=== PATIENT | male | born 1945 | race African-American/Black ===

== ENCOUNTER 2018-02-22 09:18 | Inpatient (IN) | payer MEDICARE, OTHER ==
[~2018-02-22] VITALS: Ht 177.8 cm; Wt 93.0 kg
[2018-02-22] MEDS ORDERED: FUROSEMIDE20 M1 ORAL (09:23)
[2018-02-22] MEDS ORDERED: ASPIR 8181 MG ORAL (09:23)
[2018-02-22] MEDS ORDERED: COREG3.125 MG ORAL (09:23)
[2018-02-22] MEDS ORDERED: POTASSIUM CHLO10 MEQ ORAL (09:23)
--- NOTE | 2018-02-22 09:25 | Emergency Room Report ---
History of Present Illness General Chief Complaint: General Complaint Source: Patient, EMS Present Illness HPI Patient is a 73-year-old male brought in by EMS after increased left upper extremity pain. The patient reports having intermittent episodes. The patient had prior history of end-stage renal disease and is currently being dialyzed. Patient reports having slight increased drainage from his left upper extremity. The patient had been dialyzed Friday and is normally dialyzed Friday. Patient been getting additional dialysis one day a week. Allergies: Coded Allergies: PENICILLINS (Verified Allergy, Unknown, 02/22/18) Patient History Past Medical History: see triage record Reviewed Nursing Documentation: PMH: Agreed; PSxH: Agreed Review of Systems All Other Systems: negative except mentioned in HPI Physical Exam Sp02 EP Interpretation: reviewed, normal General Appearance: normal inspection, well appearing, no apparent distress, alert, GCS 15, Chronically Ill Head: atraumatic ENT: normal ENT inspection, hearing grossly normal, normal voice Neck: normal inspection, full range of motion, supple, no bony tend Respiratory: normal inspection, lungs clear, no respiratory distress, no retraction, no wheezing Cardiovascular #1: regular rate, rhythm, no edema Gastrointestinal: normal inspection, normal bowel sounds, non tender, soft, no guarding, no hernia Genitourinary: no CVA tenderness Musculoskeletal: normal inspection, back normal, normal range of motion Neurologic: normal inspection, alert, oriented x3, responsive, speech normal Psychiatric: normal inspection, judgement/insight normal, mood/affect normal Skin: no rash, other - av graft with brisk pulse Medical Decision Making Diagnostic Impression: Primary Impression: ESRD (end stage renal disease) Additional Impressions: Pneumonitis Left arm pain ER Course Patient presented for left upper extremity pain. Differential diagnosis included but was not limited to myocardial infarction vascular insufficiency, DVT venous thrombosis, cellulitis among others. Because of complexity of patient's case laboratory testing and imaging studies were ordered.Chest x-ray read by radiology showed bilateral basilar opacities. The potassium was noted to be unremarkable The laboratory testing showed adequate hemoglobin. The patient's initial troponin was noted be negative. The Dr. Shay Mcclellan was contacted for inpatient management Labs Test 02/22/18 09:30 White Blood Count 6.5 K/UL (4.8-10.8) Red Blood Count 4.04 M/UL (4.70-6.10) Hemoglobin 11.7 G/DL (14.2-18.0) Hematocrit 38.0 % (42.0-52.0) Mean Corpuscular Volume 94 FL (80-99) Mean Corpuscular Hemoglobin 28.9 PG (27.0-31.0) Mean Corpuscular Hemoglobin Concent 30.8 G/DL (32.0-36.0) Red Cell Distribution Width 14.9 % (11.6-14.8) Platelet Count 179 K/UL (150-450) Mean Platelet Volume 7.6 FL (6.5-10.1) Neutrophils (%) (Auto) 52.0 % (45.0-75.0) Lymphocytes (%) (Auto) 20.5 % (20.0-45.0) Monocytes (%) (Auto) 11.3 % (1.0-10.0) Eosinophils (%) (Auto) 14.3 % (0.0-3.0) Basophils (%) (Auto) 1.9 % (0.0-2.0) Prothrombin Time 10.7 SEC (9.30-11.50) Prothromb Time International Ratio 1.0 (0.9-1.1) Activated Partial Thromboplast Time 26 SEC (23-33) Sodium Level 139 MMOL/L (136-145) Potassium Level 4.9 MMOL/L (3.5-5.1) Chloride Level 102 MMOL/L (98-107) Carbon Dioxide Level 26 MMOL/L (21-32) Anion Gap 11 mmol/L (5-15) Blood Urea Nitrogen 52 mg/dL (7-18) Creatinine 8.3 MG/DL (0.55-1.30) Estimat Glomerular Filtration Rate mL/min (>60) Glucose Level 72 MG/DL (74-106) Calcium Level 8.5 MG/DL (8.5-10.1) Total Bilirubin 0.3 MG/DL (0.2-1.0) Aspartate Amino Transf (AST/SGOT) 12 U/L (15-37) Alanine Aminotransferase (ALT/SGPT) 10 U/L (12-78) Alkaline Phosphatase 98 U/L (46-116) Troponin I 0.088 ng/mL (0.000-0.056) Total Protein 7.9 G/DL (6.4-8.2) Albumin 3.3 G/DL (3.4-5.0) Globulin 4.6 g/dL Albumin/Globulin Ratio 0.7 (1.0-2.7) EKG Diagnostic Results Rate: normal Rhythm: NSR ST Segments: no acute changes Status: unchanged Disposition: ADMITTED INPATIENT Condition: Serious Pb Johnson MD Feb 22, 2018 09:25
[2018-02-22] MEDS ORDERED: Acetaminophen 500mg (ES) tab ORAL ONE (09:45)
[2018-02-22 09:50] VITALS: BP 146/64
[2018-02-22 10:08] LABS: BASOPHILS % (AUTO) 1.9 % (0.0-2.0); EOSINOPHILS % (AUTO) 14.3 % (0.0-3.0); HEMOGLOBIN 11.7 G/DL (14.2-18.0); LYMPHOCYTES % (AUTO) 20.5 % (20.0-45.0); MEAN CORPUSCULAR VOLUME 94 FL (80-99); MONOCYTES % (AUTO) 11.3 % (1.0-10.0); PLATELET COUNT 179 K/UL (150-450); RED BLOOD COUNT 4.04 M/UL (4.70-6.10); RED CELL DISTRIBUTION WIDTH 14.9 % (11.6-14.8); WHITE BLOOD COUNT 6.5 K/UL (4.8-10.8)
[2018-02-22 10:16] LABS: ANION GAP 11 mmol/L (5-15); BLOOD UREA NITROGEN 52 mg/dL (7-18); CALCIUM 8.5 MG/DL (8.5-10.1); CARBON DIOXIDE 26 MMOL/L (21-32); CHLORIDE 102 MMOL/L (98-107); CREATININE 8.3 MG/DL (0.55-1.30); POTASSIUM 4.9 MMOL/L (3.5-5.1); SODIUM 139 MMOL/L (136-145)
[2018-02-22 10:20] LABS: ALANINE AMINOTRANSFERASE 10 U/L (12-78); ALBUMIN 3.3 G/DL (3.4-5.0); ALBUMIN/GLOBULIN RATIO 0.7 (1.0-2.7); ALKALINE PHOSPHATASE 98 U/L (46-116); ASPARTATE AMINO TRANSFERASE 12 U/L (15-37); BILIRUBIN,TOTAL 0.3 MG/DL (0.2-1.0)
--- NOTE | 2018-02-22 10:36 | Diagnostic Imaging Report ---
INDICATION: Shortness of breath COMPARISON: None FINDINGS: Single frontal view demonstrates a prominent heart size. Bilateral lower lung zone opacities, can represent pneumonia, correlation can be obtained with CT, followup to resolution. No pleural effusions. The visualized osseous structures are within normal limits. IMPRESSION: Prominent heart size. Bilateral lower lung zone opacities, can represent pneumonia, correlation can be obtained with CT, followup to resolution.
[2018-02-22] MEDS ORDERED: Aspirin Baby 81mg ORAL ONE (10:45)
[2018-02-22] MEDS ORDERED: ALLOPURINOL100 M1 ORAL (11:30)
[2018-02-22 12:31] VITALS: BP 151/87
[2018-02-22 12:55] VITALS: BP 149/88
--- NOTE | 2018-02-22 14:46 | History and Physical ---
History of Present Illness General Date patient seen: Feb 22, 2018 Reason for Hospitalization: General Complaint Present Illness HPI 73 yo m w/ pmhx of MMP including ESRD on HD ([facility]FS), prior LUE AV graft infection , Chronic cough, CAD, gout, PNA who presented to the ED w/ acute on chronic productive cough, sob, jacome and small amount of serous drainage form his LUE AV graft w/ arm pain. Cough is productive of thick yusuf sputum, increased in quantity from baseline (prior smoker, quit 10 yrs ago). Denies fever, chills, nausea, vom, diarrhea, cp, palp. In the ED pt was found to have infiltrates on CXR and started on Levofloxacin. LUE graft was slightly ulcerated but dry. Initial labs relatively unremarkable. Pt will be placed in observation for rule out acs and HD. Allergies: Coded Allergies: PENICILLINS (Verified Allergy, Unknown, 02/22/18) Medication History Scheduled Allopurinol* (Allopurinol*), 100 MG ORAL DAILY, (Reported) Aspirin* (Aspir 81*), 81 MG ORAL DAILY, (Reported) Carvedilol (Coreg), Unknown Dose ORAL EVERY 12 HOURS, (Reported) Furosemide* (Lasix*), MG ORAL DAILY, (Reported) Potassium Chloride* (K-Dur*), Unknown Dose ORAL DAILY, (Reported) Patient History Healthcare decision maker Resuscitation status Full Code Advanced Directive on File Past Medical/Surgical History Past Medical/Surgical History: (1) Pneumonitis (2) ESRD (end stage renal disease) (3) Left arm pain Review of Systems Constitutional: Denies: no symptoms, see HPI, chills, sweats, fever, malaise, weakness, other Respiratory: Reports: see HPI, cough, shortness of breath, JACOME, sputum; Denies : no symptoms, orthopnea, stridor, wheezing, other Cardiovascular: Denies: no symptoms, see HPI, chest pain, edema, palpitations, syncope, PND, other Gastrointestinal: Denies: no symptoms, see HPI, abdominal pain, constipation, diarrhea, nausea, vomiting, melena, hematemesis, other Genitourinary: Denies: no symptoms, see HPI, discharge, dysuria, frequency, hematuria, pain, retention, incontinence, urgency, vag bleed/dc, other Musculoskeletal: Denies: no symptoms, see HPI, back pain, gout, joint pain, joint swelling, muscle pain, muscle stiffness, other Skin: Reports: see HPI - graft drainage & ulceration Psychiatric: Denies: no symptoms, see HPI, prior hx, anxiety, depressed feelings, emotional problems, SI, HI, hallucinations, other Neurological: Denies: no symptoms, see HPI, headache, numbness, paresthesia, seizure, tingling, tremors, focal weakness, syncope, dizziness, other Endocrine: Denies: no symptoms, see HPI, excessive sweating, flushing, intolerance to temperature, increased thirst, increased urine, unexplained weight loss, other Physical Exam General Appearance: WD/WN, alert HEENT: normocephalic, atraumatic, anicteric, mucous membranes moist, PERRL, EOMI, no JVD Neck: supple, normal inspection Respiratory/Chest: chest wall non-tender, lungs clear, normal breath sounds, no respiratory distress Cardiovascular/Chest: normal rate, regular rhythm, regularly irregular, no gallop/murmur Abdomen: normal bowel sounds, non tender, soft, no organomegaly, no mass Extremities: no edema, no cyanosis 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, oriented x 3, normal mood/affect Last 24 Hour Vital Signs Date Time Temp Pulse Resp B/P (MAP) Pulse Ox O2 Delivery O2 Flow Rate FiO2 02/22/18 12:55 Room Air 02/22/18 12:48 98.6 67 18 151/87 100 Room Air 4.0 98.6 02/22/18 12:31 98.6 67 18 151/87 100 Room Air 98.6 02/22/18 10:14 98.6 02/22/18 09:50 98.6 68 18 146/64 96 Room Air 98.6 02/22/18 09:44 98.3 02/22/18 09:19 98.3 88 18 162/90 96 Nasal Cannula 4.0 98.2 Laboratory Tests Test 02/22/18 09:30 White Blood Count 6.5 K/UL (4.8-10.8) Red Blood Count 4.04 M/UL (4.70-6.10) L Hemoglobin 11.7 G/DL (14.2-18.0) L Hematocrit 38.0 % (42.0-52.0) L Mean Corpuscular Volume 94 FL (80-99) Mean Corpuscular Hemoglobin 28.9 PG (27.0-31.0) Mean Corpuscular Hemoglobin Concent 30.8 G/DL (32.0-36.0) L Red Cell Distribution Width 14.9 % (11.6-14.8) H Platelet Count 179 K/UL (150-450) Mean Platelet Volume 7.6 FL (6.5-10.1) Neutrophils (%) (Auto) 52.0 % (45.0-75.0) Lymphocytes (%) (Auto) 20.5 % (20.0-45.0) Monocytes (%) (Auto) 11.3 % (1.0-10.0) H Eosinophils (%) (Auto) 14.3 % (0.0-3.0) H Basophils (%) (Auto) 1.9 % (0.0-2.0) Prothrombin Time 10.7 SEC (9.30-11.50) Prothromb Time International Ratio 1.0 (0.9-1.1) Activated Partial Thromboplast Time 26 SEC (23-33) Sodium Level 139 MMOL/L (136-145) Potassium Level 4.9 MMOL/L (3.5-5.1) Chloride Level 102 MMOL/L (98-107) Carbon Dioxide Level 26 MMOL/L (21-32) Anion Gap 11 mmol/L (5-15) Blood Urea Nitrogen 52 mg/dL (7-18) H Creatinine 8.3 MG/DL (0.55-1.30) H Estimat Glomerular Filtration Rate mL/min (>60) Glucose Level 72 MG/DL (74-106) L Calcium Level 8.5 MG/DL (8.5-10.1) Total Bilirubin 0.3 MG/DL (0.2-1.0) Aspartate Amino Transf (AST/SGOT) 12 U/L (15-37) L Alanine Aminotransferase (ALT/SGPT) 10 U/L (12-78) L Alkaline Phosphatase 98 U/L (46-116) Troponin I 0.088 ng/mL (0.000-0.056) Total Protein 7.9 G/DL (6.4-8.2) Albumin 3.3 G/DL (3.4-5.0) L Globulin 4.6 g/dL Albumin/Globulin Ratio 0.7 (1.0-2.7) L Height (Feet): 5 Height (Inches): 10.00 Weight (Pounds): 200 Medications Current Medications Medications (Trade) Dose Ordered Sig/Gallito Route PRN Reason Start Time Stop Time Status Last Admin Dose Admin Allopurinol (Zyloprim) 100 mg DAILY ORAL 02/23/18 09:00 03/25/18 08:59 Aspirin (Ecotrin) 81 mg DAILY ORAL 02/23/18 09:00 03/25/18 08:59 Carvedilol (Coreg) 3.125 mg EVERY 12 HOURS ORAL 02/22/18 21:00 03/24/18 20:59 Furosemide (Lasix) 20 mg DAILY ORAL 02/23/18 09:00 03/25/18 08:59 Heparin Sodium (Porcine) (Heparin 5000 units/ml) 5,000 units EVERY 12 HOURS SUBQ 02/22/18 21:00 03/24/18 20:59 Levofloxacin 50 ml @ 50 mls/hr Q48H IVPB 02/24/18 14:00 03/03/18 13:59 Levofloxacin 100 ml @ 100 mls/hr ONCE ONCE IVPB 02/22/18 14:00 02/22/18 14:59 Potassium Chloride (K-Dur) 20 meq DAILY ORAL 02/23/18 09:00 03/25/18 08:59 Assessment/Plan Problem List: (1) ESRD (end stage renal disease) ICD Codes: N18.6 - End stage renal disease SNOMED: 30951481 (2) Pneumonitis ICD Codes: J18.9 - Pneumonia, unspecified organism SNOMED: 649579572 (3) Left arm pain ICD Codes: M79.602 - Pain in left arm SNOMED: 882441310 Assessment/Plan #Left arm pain (? anginal equivalent per ED) - r/o acs #ESRD on HD #LUE fistula drainage - Hx prior infection. Not clinically infected on inspection #Pneumonia - admit to in pt - continue levofloxacin for coverage of PNA - pulm consult, dr Fields - nephrology consult, dr Alba - monitor fistula for evidence of infection, defer abx for now - trend tn/ekg - asa, beta guillermo - cns - cardiac diet - supportive care - dvt ppx: scds/hsq expect pt will require 1-2 days of in pt care expect pt to be discharged to home vs snf when medically stable I spent 70 min on this case and 48 min on counseling and or care coordination time of this note dose not reflect time of clinical encounter Abiel Mcclellan MD Feb 22, 2018 14:46
[2018-02-22 16:00] VITALS: BP 137/97
[2018-02-22 20:00] VITALS: BP 142/84
[2018-02-22] MEDS: Heparin 5000 units/ml inj SUBQ SCH (20:59)
[2018-02-22] MEDS ORDERED: Vancomycin 1 GM in D5W 275 ML IVPB SCH (21:00)
[2018-02-23] VITALS (7 sets, daily range): BP systolic 125–166; BP diastolic 70–100
[2018-02-23 05:57] LABS: BASOPHILS % (AUTO) 2.3 % (0.0-2.0); EOSINOPHILS % (AUTO) 18.1 % (0.0-3.0); HEMATOCRIT 34.6 % (42.0-52.0); HEMOGLOBIN 11.2 G/DL (14.2-18.0); LYMPHOCYTES % (AUTO) 21.8 % (20.0-45.0); MEAN CORPUSCULAR VOLUME 93 FL (80-99); MONOCYTES % (AUTO) 11.9 % (1.0-10.0); NEUTROPHILS % (AUTO) 45.8 % (45.0-75.0); PLATELET COUNT 157 K/UL (150-450); RED BLOOD COUNT 3.72 M/UL (4.70-6.10); RED CELL DISTRIBUTION WIDTH 15.1 % (11.6-14.8); WHITE BLOOD COUNT 5.4 K/UL (4.8-10.8)
[2018-02-23 06:08] LABS: ANION GAP 11 mmol/L (5-15); BLOOD UREA NITROGEN 69 mg/dL (7-18); CALCIUM 8.2 MG/DL (8.5-10.1); CARBON DIOXIDE 25 MMOL/L (21-32); CHLORIDE 103 MMOL/L (98-107); CREATININE 9.8 MG/DL (0.55-1.30); POTASSIUM 5.2 MMOL/L (3.5-5.1); SODIUM 139 MMOL/L (136-145)
[2018-02-23] MEDS: Aspirin EC 81mg tab ORAL SCH (09:51)
[2018-02-23] MEDS: Allopurinol 100mg Tab ORAL SCH (09:51)
[2018-02-23] MEDS: Heparin 5000 units/ml inj SUBQ SCH ×2 (09:54→20:40)
--- NOTE | 2018-02-23 10:30 | General Progress Note ---
Assessment/Plan Problem List: (1) PNEUMONIA, UNSPECIFIED ORGANISM ICD Codes: J18.9 - PNEUMONIA, UNSPECIFIED ORGANISM (2) AV graft malfunction ICD Codes: T82.590A - Other mechanical complication of surgically created arteriovenous fistula, initial encounter SNOMED: 218634483 (3) ESRD (end stage renal disease) on dialysis ICD Codes: N18.6 - End stage renal disease; Z99.2 - Dependence on renal dialysis SNOMED: 748831519 (4) HYP CHR KIDNEY DISEASE W STAGE 5 CHR KIDNEY DISEASE OR ESRD ICD Codes: I12.0 - HYP CHR KIDNEY DISEASE W STAGE 5 CHR KIDNEY DISEASE OR ESRD Assessment/Plan Pneumonia, unspecified organism c/w levofloxacin pulm consult appreciated encourage pulmonary toilet AV graft malfunction Plan will be to attempt HD today hopefully will not have issues but if needed will try heparin ESRD usually //Fri will have HD today as pt is slightly overloaded Nephro on consult Left arm pain ICD Codes: M79.602 - Pain in left arm Currently stable will c/w HD Subjective Constitutional: Reports: malaise, weakness Cardiovascular: Denies: edema, irregular heart rate, lightheadedness Respiratory: Reports: cough, shortness of breath, sputum Gastrointestinal/Abdominal: Denies: no symptoms, abdomen distended, abdominal pain, black stools, tarry stools, blood in stool, constipated, diarrhea, difficulty swallowing, nausea, poor appetite, poor fluid intake, rectal bleeding , vomiting, other Neurologic/Psychiatric: Denies: no symptoms, anxiety, depressed, emotional problems, headache, numbness, paresthesia, pre-existing deficit, seizure, tingling, tremors, weakness, other Allergies: Coded Allergies: PENICILLINS (Verified Allergy, Unknown, 02/22/18) Subjective Pt seen and examined. He states his breathing is slightly improved. No new complaints at this time. Objective Last 24 Hour Vital Signs Date Time Temp Pulse Resp B/P (MAP) Pulse Ox O2 Delivery O2 Flow Rate FiO2 02/23/18 09:55 72 159/91 02/23/18 09:00 Room Air 02/23/18 08:00 97.9 72 20 159/91 (113) 94 97.9 02/23/18 04:00 81 02/23/18 04:00 98.0 83 20 149/92 (111) 97 98.0 02/23/18 00:00 97.0 72 20 157/90 (112) 98 97.0 02/23/18 00:00 87 02/22/18 21:00 Room Air 02/22/18 20:58 75 154/89 02/22/18 20:00 97.2 70 20 142/84 (103) 97 97.2 02/22/18 20:00 75 02/22/18 16:00 97.8 76 20 137/97 (110) 96 97.8 02/22/18 15:51 73 02/22/18 12:55 97.5 77 20 149/88 (108) 95 97.5 02/22/18 12:55 Room Air 02/22/18 12:55 75 02/22/18 12:48 98.6 67 18 151/87 100 Room Air 4.0 98.6 02/22/18 12:31 98.6 67 18 151/87 100 Room Air 98.6 02/22/18 10:14 98.6 Intake and Output 02/22/18 02/23/18 19:00 07:00 Intake Total 500 ml 300 ml Balance 500 ml 300 ml Intake Oral 400 ml 300 ml IV Total 100 ml Laboratory Tests 02/22/18 17:40: Troponin I 0.085H 02/23/18 00:30: Troponin I 0.069H 02/23/18 05:40: Troponin I 0.082H, White Blood Count 5.4, Red Blood Count 3.72L, Hemoglobin 11.2L, Hematocrit 34.6L, Mean Corpuscular Volume 93, Mean Corpuscular Hemoglobin 30.1, Mean Corpuscular Hemoglobin Concent 32.4, Red Cell Distribution Width 15.1H, Platelet Count 157, Mean Platelet Volume 6.7, Neutrophils (%) (Auto) 45.8, Lymphocytes (%) (Auto) 21.8, Monocytes (%) (Auto) 11.9H, Eosinophils (%) (Auto) 18.1H, Basophils (%) (Auto) 2.3H, Sodium Level 139 , Potassium Level 5.2H, Chloride Level 103, Carbon Dioxide Level 25, Anion Gap 11, Blood Urea Nitrogen 69H, Creatinine 9.8H, Estimat Glomerular Filtration Rate , Glucose Level 87, Calcium Level 8.2L Height (Feet): 5 Height (Inches): 10.00 Weight (Pounds): 207 General Appearance: no apparent distress, alert, overweight EENT: PERRL/EOMI, normal ENT inspection, pharynx normal Neck: non-tender, normal inspection Cardiovascular: normal rate, regular rhythm, no JVD Respiratory/Chest: no accessory muscle use, decreased breath sounds, crackles/ rales Abdomen: normal bowel sounds, non tender, soft Extremities: normal range of motion, non-tender, normal inspection, other - good thrill in LUE fistula Edema: no edema noted Arm (L), no edema noted Arm (R), no edema noted Leg (L), no edema noted Leg (R) 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 Feb 23, 2018 10:30
--- NOTE | 2018-02-23 11:27 | Consultation ---
History of Present Illness General Date patient seen: Feb 22, 2018 Chief Complaint: General Complaint Present Illness HPI 73-year-old male brought in by EMS after increased left upper extremity pain. the pt has been somewhat confused and pw waxing and waning of consciousness. the pt has episodes of agitation the pt oriented to self and place Allergies: Coded Allergies: PENICILLINS (Verified Allergy, Unknown, 02/22/18) Medication History Scheduled Allopurinol* (Allopurinol*), 100 MG ORAL DAILY, (Reported) Aspirin* (Aspir 81*), 81 MG ORAL DAILY, (Reported) Carvedilol (Coreg), Unknown Dose ORAL EVERY 12 HOURS, (Reported) Furosemide* (Lasix*), MG ORAL DAILY, (Reported) Potassium Chloride* (K-Dur*), Unknown Dose ORAL DAILY, (Reported) Patient History Limited by: medical condition History Provided By: Patient, Medical Record Healthcare decision maker Resuscitation status Full Code Advanced Directive on File Past Medical/Surgical History Past Medical/Surgical History: (1) ESRD (end stage renal disease) (2) Pneumonitis (3) Left arm pain (4) ESRD (end stage renal disease) on dialysis (5) AV graft malfunction (6) HYP CHR KIDNEY DISEASE W STAGE 5 CHR KIDNEY DISEASE OR ESRD (7) PNEUMONIA, UNSPECIFIED ORGANISM Review of Systems Psychiatric: Reports: prior hx, anxiety, emotional problems, hallucinations Physical Exam General Appearance: no apparent distress, alert, confused, agitated Last 24 Hour Vital Signs Date Time Temp Pulse Resp B/P (MAP) Pulse Ox O2 Delivery O2 Flow Rate FiO2 02/23/18 09:55 72 159/91 02/23/18 09:00 Room Air 02/23/18 08:00 97.9 72 20 159/91 (113) 94 97.9 02/23/18 07:42 81 02/23/18 04:00 81 02/23/18 04:00 98.0 83 20 149/92 (111) 97 98.0 02/23/18 00:00 97.0 72 20 157/90 (112) 98 97.0 02/23/18 00:00 87 02/22/18 21:00 Room Air 02/22/18 20:58 75 154/89 02/22/18 20:00 97.2 70 20 142/84 (103) 97 97.2 02/22/18 20:00 75 02/22/18 16:00 97.8 76 20 137/97 (110) 96 97.8 02/22/18 15:51 73 02/22/18 12:55 97.5 77 20 149/88 (108) 95 97.5 02/22/18 12:55 Room Air 02/22/18 12:55 75 02/22/18 12:48 98.6 67 18 151/87 100 Room Air 4.0 98.6 02/22/18 12:31 98.6 67 18 151/87 100 Room Air 98.6 Intake and Output 02/22/18 02/23/18 19:00 07:00 Intake Total 500 ml 300 ml Balance 500 ml 300 ml Intake Oral 400 ml 300 ml IV Total 100 ml Laboratory Tests Test 02/22/18 17:40 02/23/18 00:30 02/23/18 05:40 Troponin I 0.085 ng/mL (0.000-0.056) 0.069 ng/mL (0.000-0.056) 0.082 ng/mL (0.000-0.056) White Blood Count 5.4 K/UL (4.8-10.8) Red Blood Count 3.72 M/UL (4.70-6.10) L Hemoglobin 11.2 G/DL (14.2-18.0) L Hematocrit 34.6 % (42.0-52.0) L Mean Corpuscular Volume 93 FL (80-99) Mean Corpuscular Hemoglobin 30.1 PG (27.0-31.0) Mean Corpuscular Hemoglobin Concent 32.4 G/DL (32.0-36.0) Red Cell Distribution Width 15.1 % (11.6-14.8) H Platelet Count 157 K/UL (150-450) Mean Platelet Volume 6.7 FL (6.5-10.1) Neutrophils (%) (Auto) 45.8 % (45.0-75.0) Lymphocytes (%) (Auto) 21.8 % (20.0-45.0) Monocytes (%) (Auto) 11.9 % (1.0-10.0) H Eosinophils (%) (Auto) 18.1 % (0.0-3.0) H Basophils (%) (Auto) 2.3 % (0.0-2.0) H Sodium Level 139 MMOL/L (136-145) Potassium Level 5.2 MMOL/L (3.5-5.1) H Chloride Level 103 MMOL/L (98-107) Carbon Dioxide Level 25 MMOL/L (21-32) Anion Gap 11 mmol/L (5-15) Blood Urea Nitrogen 69 mg/dL (7-18) H Creatinine 9.8 MG/DL (0.55-1.30) H Estimat Glomerular Filtration Rate mL/min (>60) Glucose Level 87 MG/DL (74-106) Calcium Level 8.2 MG/DL (8.5-10.1) L Microbiology Date/Time Source Procedure Growth Status 02/22/18 12:33 Rectum - Preliminary Resulted Height (Feet): 5 Height (Inches): 10.00 Weight (Pounds): 207 Medications Current Medications Medications (Trade) Dose Ordered Sig/Gallito Route PRN Reason Start Time Stop Time Status Last Admin Dose Admin Allopurinol (Zyloprim) 100 mg DAILY ORAL 02/23/18 09:00 03/25/18 08:59 02/23/18 09:51 Aspirin (Ecotrin) 81 mg DAILY ORAL 02/23/18 09:00 03/25/18 08:59 02/23/18 09:51 Carvedilol (Coreg) 3.125 mg EVERY 12 HOURS ORAL 02/22/18 21:00 03/24/18 20:59 02/23/18 09:55 Heparin Sodium (Porcine) (Heparin 5000 units/ml) 5,000 units EVERY 12 HOURS SUBQ 02/22/18 21:00 03/24/18 20:59 02/23/18 09:54 Levofloxacin 50 ml @ 50 mls/hr Q48H IVPB 02/24/18 14:00 03/03/18 13:59 Assessment/Plan Problem List: (1) Encephalopathy due to metabolic factor or toxin SNOMED: 955275759 Status: unchanged Assessment/Plan risperdal 1mg q6hr prn for agiation avoid hypnotic and anticholinergics if possible provided ro/Jc Wang MD Feb 23, 2018 11:27
--- NOTE | 2018-02-23 11:35 | Consultation ---
Consult Note Consult Note asked to eval for dialysis management Patient is a 73-year-old male brought in by EMS after increased left upper extremity pain. The patient reports having intermittent episodes. The patient had prior history of end-stage renal disease and is currently being dialyzed. Patient reports having slight increased drainage from his left upper extremity. The patient had been dialyzed Friday and is normally dialyzed Friday. Patient been getting additional dialysis one day a week. 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 Not clinically infected on inspection Check labs Keep BP in check DC Lasix and KCL Dialysis today 2 D Perry Lopez MD Feb 23, 2018 11:35
--- NOTE | 2018-02-23 11:45 | Consultation ---
History of Present Illness General Date patient seen: Feb 23, 2018 Time patient seen: 11:32 Chief Complaint: General Complaint Present Illness HPI 73 year old male presents with L arm pain with increased drainage, pain 4/10 reinaldo , on and off. Also experienced SOB. Hx of ESRD with Dialysis on . Patient has chronic cough, hx of CAD, Gout, Pneumonia. LUE graft with drainage. SOB with exertion. No fever, chills, N/V, palpitations. CXR with infiltrates, Bilateral lower lung zone opacities, can represent pneumonia,. Started on ABX. Troponin mildly elevated but flat Allergies: Coded Allergies: PENICILLINS (Verified Allergy, Unknown, 02/22/18) Medication History Scheduled Allopurinol* (Allopurinol*), 100 MG ORAL DAILY, (Reported) Aspirin* (Aspir 81*), 81 MG ORAL DAILY, (Reported) Carvedilol (Coreg), Unknown Dose ORAL EVERY 12 HOURS, (Reported) Furosemide* (Lasix*), MG ORAL DAILY, (Reported) Potassium Chloride* (K-Dur*), Unknown Dose ORAL DAILY, (Reported) Patient History Healthcare decision maker Resuscitation status Full Code Advanced Directive on File Review of Systems Constitutional: Reports: no symptoms Eye: Reports: no symptoms ENT: Reports: no symptoms Respiratory: Reports: cough, shortness of breath Cardiovascular: Reports: no symptoms Gastrointestinal: Reports: no symptoms Genitourinary: Reports: no symptoms Musculoskeletal: Reports: no symptoms Skin: Reports: lesions Psychiatric: Reports: no symptoms Neurological: Reports: no symptoms Endocrine: Reports: no symptoms Hematologic/Lymphatic: Reports: no symptoms Physical Exam General Appearance: no apparent distress Lines, tubes and drains: peripheral, dialysis access HEENT: normocephalic, atraumatic, anicteric, mucous membranes moist, PERRL Neck: non-tender, normal alignment, supple, normal inspection Respiratory/Chest: chest wall non-tender, no respiratory distress, no accessory muscle use, crackles/rales Cardiovascular/Chest: normal peripheral pulses, normal rate, regular rhythm Abdomen: normal bowel sounds, non tender, soft Extremities: normal range of motion, non-tender Skin Exam: normal pigmentation, warm/dry 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, no motor/sensory deficits Last 24 Hour Vital Signs Date Time Temp Pulse Resp B/P (MAP) Pulse Ox O2 Delivery O2 Flow Rate FiO2 10/15/18 09:55 72 159/91 02/23/18 09:00 Room Air 02/23/18 08:00 97.9 72 20 159/91 (113) 94 97.9 02/23/18 07:42 81 02/23/18 04:00 81 02/23/18 04:00 98.0 83 20 149/92 (111) 97 98.0 02/23/18 00:00 97.0 72 20 157/90 (112) 98 97.0 02/23/18 00:00 87 02/22/18 21:00 Room Air 02/22/18 20:58 75 154/89 02/22/18 20:00 97.2 70 20 142/84 (103) 97 97.2 02/22/18 20:00 75 02/22/18 16:00 97.8 76 20 137/97 (110) 96 97.8 02/22/18 15:51 73 02/22/18 12:55 97.5 77 20 149/88 (108) 95 97.5 02/22/18 12:55 Room Air 02/22/18 12:55 75 02/22/18 12:48 98.6 67 18 151/87 100 Room Air 4.0 98.6 02/22/18 12:31 98.6 67 18 151/87 100 Room Air 98.6 Intake and Output 02/22/18 02/23/18 19:00 07:00 Intake Total 500 ml 300 ml Balance 500 ml 300 ml Intake Oral 400 ml 300 ml IV Total 100 ml Laboratory Tests Test 02/22/18 17:40 02/23/18 00:30 02/23/18 05:40 Troponin I 0.085 ng/mL (0.000-0.056) 0.069 ng/mL (0.000-0.056) 0.082 ng/mL (0.000-0.056) White Blood Count 5.4 K/UL (4.8-10.8) Red Blood Count 3.72 M/UL (4.70-6.10) L Hemoglobin 11.2 G/DL (14.2-18.0) L Hematocrit 34.6 % (42.0-52.0) L Mean Corpuscular Volume 93 FL (80-99) Mean Corpuscular Hemoglobin 30.1 PG (27.0-31.0) Mean Corpuscular Hemoglobin Concent 32.4 G/DL (32.0-36.0) Red Cell Distribution Width 15.1 % (11.6-14.8) H Platelet Count 157 K/UL (150-450) Mean Platelet Volume 6.7 FL (6.5-10.1) Neutrophils (%) (Auto) 45.8 % (45.0-75.0) Lymphocytes (%) (Auto) 21.8 % (20.0-45.0) Monocytes (%) (Auto) 11.9 % (1.0-10.0) H Eosinophils (%) (Auto) 18.1 % (0.0-3.0) H Basophils (%) (Auto) 2.3 % (0.0-2.0) H Sodium Level 139 MMOL/L (136-145) Potassium Level 5.2 MMOL/L (3.5-5.1) H Chloride Level 103 MMOL/L (98-107) Carbon Dioxide Level 25 MMOL/L (21-32) Anion Gap 11 mmol/L (5-15) Blood Urea Nitrogen 69 mg/dL (7-18) H Creatinine 9.8 MG/DL (0.55-1.30) H Estimat Glomerular Filtration Rate mL/min (>60) Glucose Level 87 MG/DL (74-106) Calcium Level 8.2 MG/DL (8.5-10.1) L Microbiology Date/Time Source Procedure Growth Status 02/22/18 12:33 Rectum - Preliminary Resulted Height (Feet): 5 Height (Inches): 10.00 Weight (Pounds): 207 Medications Current Medications Medications (Trade) Dose Ordered Sig/Gallito Route PRN Reason Start Time Stop Time Status Last Admin Dose Admin Allopurinol (Zyloprim) 100 mg DAILY ORAL 02/23/18 09:00 03/25/18 08:59 02/23/18 09:51 Aspirin (Ecotrin) 81 mg DAILY ORAL 02/23/18 09:00 03/25/18 08:59 02/23/18 09:51 Carvedilol (Coreg) 3.125 mg EVERY 12 HOURS ORAL 02/22/18 21:00 03/24/18 20:59 02/23/18 09:55 Heparin Sodium (Porcine) (Heparin 5000 units/ml) 5,000 units EVERY 12 HOURS SUBQ 02/22/18 21:00 03/24/18 20:59 02/23/18 09:54 Levofloxacin 50 ml @ 50 mls/hr Q48H IVPB 02/24/18 14:00 03/03/18 13:59 Assessment/Plan Status: stable Assessment/Plan Assessment/Plan Problem List: (1) ESRD (end stage renal disease) (2) Pneumonitis (3) Left arm pain (4) Chest pain (5) Coronary artery disease (6) AV graft malfunction Serial EKG/Troponin No indication for cath Outpatient stress test Abx for PNA Maintain HD Continue aspirin Continue beta guillermo Add statin Nikolay Michelle MD Feb 23, 2018 11:45
--- NOTE | 2018-02-23 12:45 | Consultation ---
DATE OF CONSULTATION: 02/23/2018 PULMONARY CONSULTATION CONSULTING PHYSICIAN: Fran Fields M.D. HISTORY OF PRESENT ILLNESS: This is a 73-year-old male with a previous history of ESRD, on dialysis, previous left AV graft infection, CAD, and gout, who came to the hospital with cough and shortness of breath. He also had drainage of the fistula site. He reports the cough was productive of thick yellow phlegm. The patient has been a smoker in the past. At this time, he denies any fever, chills, or nausea. X-ray chest confirmed right lung infiltrate. He was started on antibiotics. PAST MEDICAL HISTORY: Notable as above for CAD, gout, previous pneumonia, ESRD, on dialysis, and hypertension. LIST OF MEDICATIONS: Include KCl, Lasix, Coreg, aspirin, and allopurinol. ALLERGIES: Penicillin. SOCIAL HISTORY: He has been a smoker in the past, but quit 10 years ago. Denies alcohol use. REVIEW OF SYSTEMS: Denies any headaches, hematemesis, melena, or hematochezia. PHYSICAL EXAMINATION: VITAL SIGNS: Blood pressure is 150/90, heart rate , afebrile, and O2 saturation 98% on room air. GENERAL: Reveals an elderly male. HEENT: Unremarkable. LUNGS: Clear breath sounds bilaterally with few basilar crackles. ABDOMEN: Soft. EXTREMITIES: There is no edema. NEUROLOGIC: Nonfocal. LABORATORY AND DIAGNOSTIC DATA: Lab testing shows normal CBC and BMP with the exception of creatinine being . Potassium 5.2. Troponin is borderline high. IMPRESSION: 1. Bilateral basilar pneumonia, community acquired. 2. End-stage renal disease, on dialysis. 3. Hypertension. DISCUSSION: I agree with present antibiotics and care. Oxygen and pulmonary hygiene. Cardiac evaluation as per primary physician. Agree with Levaquin. We will follow. Fran Fields M.D. DR: ALISSA JOB#: [id number] CC:
[2018-02-23 13:40] LABS: ALANINE AMINOTRANSFERASE 10 U/L (12-78); ALKALINE PHOSPHATASE 93 U/L (46-116); ASPARTATE AMINO TRANSFERASE 11 U/L (15-37); BILIRUBIN,DIRECT < 0.1 MG/DL (0.0-0.3); BILIRUBIN,TOTAL 0.3 MG/DL (0.2-1.0); FERRITIN 264 NG/ML (8-388); PHOSPHORUS 6.6 MG/DL (2.5-4.9)
[2018-02-23 14:08] LABS: % IRON SATURATION 23 % (15-50); IRON 49 ug/dL (50-175); TOTAL IRON BINDING CAPACITY 217 ug/dL (250-450)
[2018-02-23] MEDS: Carvedilol 6.25mg Tab ORAL SCH (20:39)
--- NOTE | 2018-02-23 21:50 | General Progress Note ---
Assessment/Plan Problem List: (1) Encephalopathy due to metabolic factor or toxin SNOMED: 373705303 Assessment/Plan risperdal 1mg q6hr prn for agiation avoid hypnotic and anticholinergics if possible provided ro/st Subjective Date patient seen: Feb 23, 2018 Neurologic/Psychiatric: Reports: anxiety, emotional problems Allergies: Coded Allergies: PENICILLINS (Verified Allergy, Unknown, 02/22/18) Objective Last 24 Hour Vital Signs Date Time Temp Pulse Resp B/P (MAP) Pulse Ox O2 Delivery O2 Flow Rate FiO2 02/23/18 20:39 78 131/70 02/23/18 16:00 97.2 64 20 157/95 (115) 96 97.2 02/23/18 15:11 92 02/23/18 14:49 Room Air 02/23/18 13:00 125/89 (101) 02/23/18 12:52 Room Air 02/23/18 12:00 97.3 73 22 166/100 (122) 98 97.3 02/23/18 11:57 80 02/23/18 09:55 72 159/91 02/23/18 09:00 Room Air 02/23/18 08:00 97.9 72 20 159/91 (113) 94 97.9 02/23/18 07:42 81 02/23/18 04:00 81 02/23/18 04:00 98.0 83 20 149/92 (111) 97 98.0 02/23/18 00:00 97.0 72 20 157/90 (112) 98 97.0 02/23/18 00:00 87 Intake and Output 02/22/18 02/23/18 19:00 07:00 Intake Total 500 ml 300 ml Balance 500 ml 300 ml Intake Oral 400 ml 300 ml IV Total 100 ml Laboratory Tests 02/23/18 00:30: Troponin I 0.069H 02/23/18 05:40: Troponin I 0.082H, White Blood Count 5.4, Red Blood Count 3.72L, Hemoglobin 11.2L, Hematocrit 34.6L, Mean Corpuscular Volume 93, Mean Corpuscular Hemoglobin 30.1, Mean Corpuscular Hemoglobin Concent 32.4, Red Cell Distribution Width 15.1H, Platelet Count 157, Mean Platelet Volume 6.7, Neutrophils (%) (Auto) 45.8, Lymphocytes (%) (Auto) 21.8, Monocytes (%) (Auto) 11.9H, Eosinophils (%) (Auto) 18.1H, Basophils (%) (Auto) 2.3H, Sodium Level 139 , Potassium Level 5.2H, Chloride Level 103, Carbon Dioxide Level 25, Anion Gap 11, Blood Urea Nitrogen 69H, Creatinine 9.8H, Estimat Glomerular Filtration Rate , Glucose Level 87, Calcium Level 8.2L 02/23/18 12:00: Troponin I 0.094H, Uric Acid 6.3, Phosphorus Level 6.6H, Magnesium Level 2.3, Iron Level 49L, Total Iron Binding Capacity 217L, Percent Iron Saturation 23, Unsaturated Iron Binding 168, Ferritin 264, Total Bilirubin 0.3, Direct Bilirubin < 0.1, Aspartate Amino Transf (AST/SGOT) 11L, Alanine Aminotransferase (ALT/SGPT) 10L, Alkaline Phosphatase 93, Total Protein 7.4, Albumin 3.0L, Vitamin B12 Level 1097H, Folate 11.4 02/23/18 18:08: Troponin I 0.091H Height (Feet): 5 Height (Inches): 10.00 Weight (Pounds): 207 General Appearance: no apparent distress, alert, confused Jc Cardona MD Feb 23, 2018 21:50
[2018-02-24] VITALS: BP 158/86
[2018-02-24 04:00] VITALS: BP 132/80
--- NOTE | 2018-02-24 06:47 | Consultation ---
Consult Note Consult Note Hematology Consult RFC: Anemia eval Date patient seen: Feb 24, 2018 Reason for Hospitalization: General Complaint REQ MD: Ridge and Eleuterio ID 73 yo m w/ pmhx of MMP including ESRD on HD ([facility]FS), prior LUE AV graft infection , Chronic cough, CAD, gout, PNA who presented to the ED w/ acute on chronic productive cough, sob, pressley and small amount of serous drainage form his LUE AV graft w/ arm pain. Cough is productive of thick yusuf sputum, increased in quantity from baseline (prior smoker, quit 10 yrs ago). Denies fever, chills, nausea, vom, diarrhea, cp, palp. In the ED pt was found to have infiltrates on CXR and started on Levofloxacin. LUE graft was slightly ulcerated but dry. Initial labs relatively unremarkable. Pt will be placed in observation for rule out acs and HD. Seen by other services, and heme was consulted for anemia. Allergies: Pencillins (Verified Allergy, Unknown, 02/22/18) Medication History Scheduled Allopurinol* (Allopurinol*), 100 MG ORAL DAILY, (Reported) Aspirin* (Aspir 81*), 81 MG ORAL DAILY, (Reported) Carvedilol (Coreg), Unknown Dose ORAL EVERY 12 HOURS, (Reported) Furosemide* (Lasix*), MG ORAL DAILY, (Reported) Potassium Chloride* (K-Dur*), Unknown Dose ORAL DAILY, (Reported) Patient History Healthcare decision maker Resuscitation status Full Code Advanced Directive on File Past Medical/Surgical History Past Medical/Surgical History: (1) Pneumonitis (2) ESRD (end stage renal disease) (3) Left arm pain Review of Systems Constitutional: Denies: no symptoms, see HPI, chills, sweats Respiratory: Reports: see HPI, cough, shortness of breath, PRESSLEY, sputum; Denies : no symptoms Cardiovascular: Denies: no symptoms, see HPI, chest pain, edema Gastrointestinal: Denies: no symptoms, see HPI, abdominal pain, constipation Genitourinary: Denies: no symptoms, see HPI, discharge, dysuria, frequency Musculoskeletal: Denies: no symptoms, see HPI, back pain Skin: Reports: see HPI - graft drainage & ulceration Psychiatric: Denies: no symptoms, see HPI, prior hx, anxiety Neurological: Denies: no symptoms, see HPI, headache, numbness, paresthesia Endocrine: Denies: no symptoms, see HPI, excessive sweating, flushing Physical Exam Last 24 Hour Vital Signs Date Time Temp Pulse Resp B/P (MAP) Pulse Ox O2 Delivery O2 Flow Rate FiO2 02/24/18 04:00 97.0 75 20 132/80 (97) 95 97.0 02/24/18 04:00 69 02/24/18 00:00 82 02/24/18 00:00 97.0 80 21 158/86 (110) 96 97.0 02/23/18 21:00 Room Air 02/23/18 20:39 78 131/70 02/23/18 20:00 97.0 78 21 131/70 (90) 95 97.0 02/23/18 20:00 75 02/23/18 16:00 97.2 64 20 157/95 (115) 96 97.2 02/23/18 15:11 92 02/23/18 14:49 Room Air 02/23/18 13:00 125/89 (101) 02/23/18 12:52 Room Air 02/23/18 12:00 97.3 73 22 166/100 (122) 98 97.3 02/23/18 11:57 80 02/23/18 09:55 72 159/91 02/23/18 09:00 Room Air 02/23/18 08:00 97.9 72 20 159/91 (113) 94 97.9 02/23/18 07:42 81 General Appearance: WD/WN, alert HEENT: normocephalic, atraumatic, anicteric Neck: supple, normal inspection Respiratory/Chest: chest wall non-tender, lungs clear Cardiovascular/Chest: normal rate, irregular Abdomen: normal bowel sounds, nt, nd Extremities: no edema, no cyanosis 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, oriented x 3 Labs Test 02/22/18 09:30 White Blood Count 6.5 K/UL (4.8-10.8) Red Blood Count 4.04 M/UL (4.70-6.10) L Hemoglobin 11.7 G/DL (14.2-18.0) L Hematocrit 38.0 % (42.0-52.0) L Mean Corpuscular Volume 94 FL (80-99) Mean Corpuscular Hemoglobin 28.9 PG (27.0-31.0) Mean Corpuscular Hemoglobin Concent 30.8 G/DL (32.0-36.0) L Red Cell Distribution Width 14.9 % (11.6-14.8) H Platelet Count 179 K/UL (150-450) Mean Platelet Volume 7.6 FL (6.5-10.1) Neutrophils (%) (Auto) 52.0 % (45.0-75.0) Lymphocytes (%) (Auto) 20.5 % (20.0-45.0) Monocytes (%) (Auto) 11.3 % (1.0-10.0) H Eosinophils (%) (Auto) 14.3 % (0.0-3.0) H Basophils (%) (Auto) 1.9 % (0.0-2.0) Prothrombin Time 10.7 SEC (9.30-11.50) Prothromb Time International Ratio 1.0 (0.9-1.1) Activated Partial Thromboplast Time 26 SEC (23-33) Sodium Level 139 MMOL/L (136-145) Potassium Level 4.9 MMOL/L (3.5-5.1) Chloride Level 102 MMOL/L (98-107) Carbon Dioxide Level 26 MMOL/L (21-32) Anion Gap 11 mmol/L (5-15) Blood Urea Nitrogen 52 mg/dL (7-18) H Creatinine 8.3 MG/DL (0.55-1.30) H Estimat Glomerular Filtration Rate mL/min (>60) Glucose Level 72 MG/DL (74-106) L Calcium Level 8.5 MG/DL (8.5-10.1) Total Bilirubin 0.3 MG/DL (0.2-1.0) Aspartate Amino Transf (AST/SGOT) 12 U/L (15-37) L Alanine Aminotransferase (ALT/SGPT) 10 U/L (12-78) L Alkaline Phosphatase 98 U/L (46-116) Troponin I 0.088 ng/mL (0.000-0.056) Total Protein 7.9 G/DL (6.4-8.2) Albumin 3.3 G/DL (3.4-5.0) L Globulin 4.6 g/dL Albumin/Globulin Ratio 0.7 (1.0-2.7) L Medications Medications (Trade) Dose Ordered Sig/Gallito Route PRN Reason Start Time Stop Time Status Last Admin Dose Admin Allopurinol (Zyloprim) 100 mg DAILY ORAL 02/23/18 09:00 03/25/18 08:59 Aspirin (Ecotrin) 81 mg DAILY ORAL 02/23/18 09:00 03/25/18 08:59 Carvedilol (Coreg) 3.125 mg EVERY 12 HOURS ORAL 02/22/18 21:00 03/24/18 20:59 Furosemide (Lasix) 20 mg DAILY ORAL 02/23/18 09:00 03/25/18 08:59 Heparin Sodium (Porcine) (Heparin 5000 units/ml) 5,000 units EVERY 12 HOURS SUBQ 02/22/18 21:00 03/24/18 20:59 Levofloxacin 50 ml @ 50 mls/hr Q48H IVPB 02/24/18 14:00 03/03/18 13:59 Levofloxacin 100 ml @ 100 mls/hr ONCE ONCE IVPB 02/22/18 14:00 02/22/18 14:59 Potassium Chloride (K-Dur) 20 meq DAILY ORAL 02/23/18 09:00 03/25/18 08:59 Assessment/Plan: # Anemia of chronic disease -- hgb goal >7 --> Anemia w/u has been reviewed --> hgb goal >7, anemia panel reviewed and no RUTHANN noted --> no schistocytes have been noted # ESRD (end stage renal disease) --> on HD as per renal # Pneumonitis --> per pulm recs appreciated # Left arm pain --> ? anginal equivalent per ED) - r/o acs # LUE fistula drainage - Hx prior infection. Not clinically infected on inspection # Pneumonia --> on abx as per levaquin # Dvt ppx --> dvt ppx: scds/hsq # ACP as per pcp Te Garcia MD Feb 24, 2018 06:47
[2018-02-24 08:00] VITALS: BP 165/97
[2018-02-24] MEDS: Carvedilol 6.25mg Tab ORAL SCH (08:35)
[2018-02-24] MEDS: Allopurinol 100mg Tab ORAL SCH (08:35)
[2018-02-24] MEDS: Aspirin EC 81mg tab ORAL SCH (08:35)
[2018-02-24] MEDS: Heparin 5000 units/ml inj SUBQ SCH (08:39)
--- NOTE | 2018-02-24 10:27 | Nephrology Progress Note ---
Assessment/Plan Problem List: (1) ESRD (end stage renal disease) on dialysis (2) Left arm pain (3) Elevated troponin Assessment 1) ESRD (end stage renal disease) (2) Pneumonitis (3) Left arm pain - LUE fistula drainage - Hx prior infection. Not clinically infected on inspection Plan Check labs Keep BP in check DC Lasix and KCL Dialysis as needed 2 D Echo add asa isordil Lopressor for high troponin Subjective ROS Limited/Unobtainable: No Constitutional: Reports: malaise Objective Objective Last 24 Hour Vital Signs Date Time Temp Pulse Resp B/P (MAP) Pulse Ox O2 Delivery O2 Flow Rate FiO2 02/24/18 09:00 Room Air 02/24/18 08:35 87 165/97 02/24/18 08:00 98.2 87 20 165/97 (119) 95 98.2 02/24/18 07:41 86 02/24/18 04:00 97.0 75 20 132/80 (97) 95 97.0 02/24/18 04:00 69 02/24/18 00:00 82 02/24/18 00:00 97.0 80 21 158/86 (110) 96 97.0 02/23/18 21:00 Room Air 02/23/18 20:39 78 131/70 02/23/18 20:00 97.0 78 21 131/70 (90) 95 97.0 02/23/18 20:00 75 02/23/18 16:00 97.2 64 20 157/95 (115) 96 97.2 02/23/18 15:11 92 02/23/18 14:49 Room Air 02/23/18 13:00 125/89 (101) 02/23/18 12:52 Room Air 02/23/18 12:00 97.3 73 22 166/100 (122) 98 97.3 02/23/18 11:57 80 Intake and Output 02/23/18 02/24/18 19:00 07:00 Intake Total 500 ml Output Total 3000 ml Balance -2500 ml Intake Oral 500 ml Output Hemodialysis UF 3000 ml # Voids 1 Laboratory Tests 02/23/18 12:00: Uric Acid 6.3, Phosphorus Level 6.6H, Magnesium Level 2.3, Iron Level 49L, Total Iron Binding Capacity 217L, Percent Iron Saturation 23, Unsaturated Iron Binding 168, Ferritin 264, Total Bilirubin 0.3, Direct Bilirubin < 0.1, Aspartate Amino Transf (AST/SGOT) 11L, Alanine Aminotransferase (ALT/SGPT) 10L, Alkaline Phosphatase 93, Troponin I 0.094H, Total Protein 7.4, Albumin 3.0L, Vitamin B12 Level 1097H, Folate 11.4 02/23/18 18:08: Troponin I 0.091H 02/24/18 00:15: Troponin I 0.090H 02/24/18 05:50: Troponin I 0.084H Height (Feet): 5 Height (Inches): 10.00 Weight (Pounds): 205 General Appearance: no apparent distress Neck: normal alignment Cardiovascular: normal rate Respiratory/Chest: lungs clear Abdomen: soft Perry Alba MD Feb 24, 2018 10:27
[2018-02-24] MEDS ORDERED: Metoprolol Tartrate 12.5mg TAB ORAL SCH ×2 (10:30→21:00)
--- NOTE | 2018-02-24 11:42 | General Progress Note ---
Assessment/Plan Problem List: (1) Encephalopathy due to metabolic factor or toxin SNOMED: 521476582 Status: stable, progressing Assessment/Plan risperdal 1mg q6hr prn for agiation avoid hypnotic and anticholinergics if possible provided ro/st Subjective Date patient seen: Feb 24, 2018 Neurologic/Psychiatric: Reports: anxiety, emotional problems Allergies: Coded Allergies: PENICILLINS (Verified Allergy, Unknown, 02/22/18) Objective Last 24 Hour Vital Signs Date Time Temp Pulse Resp B/P (MAP) Pulse Ox O2 Delivery O2 Flow Rate FiO2 02/24/18 09:00 Room Air 02/24/18 08:35 87 165/97 02/24/18 08:00 98.2 87 20 165/97 (119) 95 98.2 02/24/18 07:41 86 02/24/18 04:00 97.0 75 20 132/80 (97) 95 97.0 02/24/18 04:00 69 02/24/18 00:00 82 02/24/18 00:00 97.0 80 21 158/86 (110) 96 97.0 02/23/18 21:00 Room Air 02/23/18 20:39 78 131/70 02/23/18 20:00 97.0 78 21 131/70 (90) 95 97.0 02/23/18 20:00 75 02/23/18 16:00 97.2 64 20 157/95 (115) 96 97.2 02/23/18 15:11 92 02/23/18 14:49 Room Air 02/23/18 13:00 125/89 (101) 02/23/18 12:52 Room Air 02/23/18 12:00 97.3 73 22 166/100 (122) 98 97.3 02/23/18 11:57 80 Intake and Output 02/23/18 02/24/18 19:00 07:00 Intake Total 500 ml Output Total 3000 ml Balance -2500 ml Intake Oral 500 ml Output Hemodialysis UF 3000 ml # Voids 1 Laboratory Tests 02/23/18 12:00: Uric Acid 6.3, Phosphorus Level 6.6H, Magnesium Level 2.3, Iron Level 49L, Total Iron Binding Capacity 217L, Percent Iron Saturation 23, Unsaturated Iron Binding 168, Ferritin 264, Total Bilirubin 0.3, Direct Bilirubin < 0.1, Aspartate Amino Transf (AST/SGOT) 11L, Alanine Aminotransferase (ALT/SGPT) 10L, Alkaline Phosphatase 93, Troponin I 0.094H, Total Protein 7.4, Albumin 3.0L, Vitamin B12 Level 1097H, Folate 11.4 02/23/18 18:08: Troponin I 0.091H 02/24/18 00:15: Troponin I 0.090H 02/24/18 05:50: Troponin I 0.084H Height (Feet): 5 Height (Inches): 10.00 Weight (Pounds): 205 General Appearance: no apparent distress, alert Neurologic: depressed affect Jc Cardona MD Feb 24, 2018 11:42
[2018-02-24 12:00] VITALS: BP 122/67
--- NOTE | 2018-02-24 12:05 | Pulmonology Progress Note ---
Assessment/Plan Assessment/Plan IMPRESSION: 1. Bilateral basilar pneumonia, community acquired. 2. End-stage renal disease, on dialysis. 3. Hypertension. DISCUSSION: I agree with present care. Oxygen and pulmonary hygiene. I will continue to follow. Subjective Interval Events: states he is feeling better Constitutional: Reports: no symptoms HEENT: Repors: no symptoms Respiratory: Reports: no symptoms Cardiovascular: Reports: no symptoms Gastrointestinal/Abdominal: Reports: no symptoms Genitourinary: Reports: no symptoms Allergies: Coded Allergies: PENICILLINS (Verified Allergy, Unknown, 02/22/18) Objective Last 24 Hour Vital Signs Date Time Temp Pulse Resp B/P (MAP) Pulse Ox O2 Delivery O2 Flow Rate FiO2 02/24/18 09:00 Room Air 02/24/18 08:35 87 165/97 02/24/18 08:00 98.2 87 20 165/97 (119) 95 98.2 02/24/18 07:41 86 02/24/18 04:00 97.0 75 20 132/80 (97) 95 97.0 02/24/18 04:00 69 02/24/18 00:00 82 02/24/18 00:00 97.0 80 21 158/86 (110) 96 97.0 02/23/18 21:00 Room Air 02/23/18 20:39 78 131/70 02/23/18 20:00 97.0 78 21 131/70 (90) 95 97.0 02/23/18 20:00 75 02/23/18 16:00 97.2 64 20 157/95 (115) 96 97.2 02/23/18 15:11 92 02/23/18 14:49 Room Air 02/23/18 13:00 125/89 (101) 02/23/18 12:52 Room Air Intake and Output 02/23/18 02/24/18 19:00 07:00 Intake Total 500 ml Output Total 3000 ml Balance -2500 ml Intake Oral 500 ml Output Hemodialysis UF 3000 ml # Voids 1 General Appearance: no acute distress HEENT: normocephalic Respiratory/Chest: chest wall non-tender, lungs clear Cardiovascular: normal peripheral pulses, normal rate Abdomen: normal bowel sounds, soft, non tender Microbiology Date/Time Source Procedure Growth Status 02/22/18 12:33 Nasal Nares MRSA Culture - Final NO METHICILLIN RESISTANT STAPH AUREUS... Complete 02/22/18 12:33 Rectum VRE Culture - Final NO VANCOMYCIN RESISTANT ENTEROCOCCUS ... Complete 02/22/18 12:33 Rectum - Final NO CARBAPENEM-RESISTANT ENTEROBACTERI... Complete Laboratory Tests 02/23/18 18:08: Troponin I 0.091H 02/24/18 00:15: Troponin I 0.090H 02/24/18 05:50: Troponin I 0.084H Current Medications Medications (Trade) Dose Ordered Sig/Gallito Route PRN Reason Start Time Stop Time Status Last Admin Dose Admin Allopurinol (Zyloprim) 100 mg DAILY ORAL 02/23/18 09:00 03/25/18 08:59 02/24/18 08:35 Aspirin (ASA) 81 mg DAILY ORAL 02/25/18 09:00 03/27/18 08:59 Atorvastatin Calcium (Lipitor) 10 mg BEDTIME ORAL 02/23/18 21:00 03/25/18 20:59 02/23/18 20:38 Carvedilol (Coreg) 12.5 mg EVERY 12 HOURS ORAL 02/24/18 21:00 03/24/18 20:59 Docusate Sodium (Colace) 100 mg THREE TIMES A DAY ORAL 02/24/18 13:00 03/26/18 12:59 Heparin Sodium (Porcine) (Heparin 5000 units/ml) 5,000 units EVERY 12 HOURS SUBQ 02/22/18 21:00 03/24/18 20:59 02/24/18 08:39 Isosorbide Dinitrate (Isordil) 20 mg Q8HR ORAL 02/24/18 14:00 03/26/18 13:59 Levofloxacin 50 ml @ 50 mls/hr Q48H IVPB 02/24/18 14:00 03/03/18 13:59 Risperidone (RisperDAL) 1 mg Q6H PRN ORAL agitation 02/23/18 21:45 03/25/18 21:44 Sevelamer Carbonate (Renvela) 1,600 mg THREE TIMES A DAY ORAL 02/24/18 13:00 03/26/18 12:59 Fran Fields MD Feb 24, 2018 12:05
[2018-02-24] MEDS ORDERED: Docusate 100mg cap ORAL SCH (13:00)
[2018-02-24] MEDS ORDERED: Levofloxacin 250mg/D5W 50ml IVPB SCH (14:00)
--- NOTE | 2018-02-24 14:32 | Discharge Summary ---
Discharge Summary Hospital Course Date of Admission Feb 22, 2018 at 12:22 Date of Discharge Feb 24, 2018 at 14:05 Admitting Diagnosis Pneumonitis, End Stage Renal Disease HPI Blas Hernandez is a 73 year old male who was admitted on Feb 22, 2018 at 12: 22 for Pneumonia,End Stage Renal Disease Hospital Course 73 yo m w/ pmhx of MMP including ESRD on HD (MWFS), prior LUE AV graft infection , Chronic cough, CAD, gout, PNA who presented to the ED w/ acute on chronic productive cough, sob, jacome and small amount of serous drainage form his LUE AV graft w/ arm pain. Cough is productive of thick yusuf sputum, increased in quantity from baseline (prior smoker, quit 10 yrs ago). Denies fever, chills, nausea, vom, diarrhea, cp, palp. In the ED pt was found to have infiltrates on CXR and started on Levofloxacin. LUE graft was slightly ulcerated but dry. Initial labs relatively unremarkable, Pt was dialyzed without complication on . He was cleared for dc on 02/24. Discharge Medications Continued Medications: Allopurinol* (Allopurinol*) 100 Mg Tablet 100 MG ORAL DAILY, TAB (This prescription has been renewed) Aspirin* (Aspir 81*) 81 Mg Tablet.dr 81 MG ORAL DAILY, TAB (This prescription has been renewed) Carvedilol (Coreg) 3.125 Mg Tablet Unknown Dose ORAL EVERY 12 HOURS, TAB (This prescription has been renewed) Discontinued Medications: Furosemide* (Lasix*) 20 Mg Tablet MG ORAL DAILY, TAB Potassium Chloride* (K-Dur*) 10 Meq Capsule.er Unknown Dose ORAL DAILY, #7 TAB 0 Refills Discharge Condition Upon Discharge: improving Discharge Disposition Patient was discharged to Home with Home Health(06) Discharge Diagnoses: (1) ESRD (end stage renal disease) on dialysis (2) AV graft malfunction (3) HYP CHR KIDNEY DISEASE W STAGE 5 CHR KIDNEY DISEASE OR ESRD (4) PNEUMONIA, UNSPECIFIED ORGANISM (5) Encephalopathy due to metabolic factor or toxin (6) Elevated troponin Britni Elmore D.O. Feb 24, 2018 14:32
[2018-02-24] MEDS ORDERED: Carvedilol 12.5mg tab ORAL SCH (21:00)
--- NOTE | 2018-02-25 08:50 | Cardiology Report ---
APPROVED REPORT EKG Measurement Heart [id number] Sinus rhythm with 1st degree AV block Otherwise normal ECG
--- NOTE | 2018-02-25 08:51 | Cardiology Report ---
APPROVED REPORT EXAM: Two-dimensional and M-mode echocardiogram with Doppler and color Doppler. INDICATION Congestive Heart Failure M-Mode DIMENSIONS IVSd1.7 (0.7-1.1cm)Left Atrium (MM)4.4 (1.6-4.0cm) LVDd5.8 (3.5-5.6cm)Aortic Root3.6 (2.0-3.7cm) PWd1.2 (0.7-1.1cm)Aortic Cusp Exc.2.3 (1.5-2.0cm) LVDs4.4 (2.5-4.0cm) PWs1.8 cm Mild left ventricular enlargement. Global left ventricular hypokinesis. Left ventricular ejection fraction estimated to be 45 %. Mild left ventricular hypertrophy. Anterior Echo-free space, may be due to pericardial fat or effusion. Mild bi-atrial enlargement. Right ventricular chamber sizes is within normal limits. Mild focal aortic valve sclerosis with adequate cusp excursion. Mildly thickened mitral valve leaflets with reduced excursion. Echogenic density noted on posterior alessandra valve leaflet, likely heavy calcification. Mild mitral annulus and aortic root calcification. Pulmonic valve not well visualized. Normal tricuspid valve structure. IVC dilated at 2.0 cm with physiological collapse. A color flow and spectral Doppler study was performed and revealed: Mild aortic insufficiency. Peak aortic valve gradient of 11 mmHg and a mean of 6 mmHg. Aortic valve area 1.3 cm2 calculated by continuity equation. Severe mitral regurgitation. Mitral P1/2 time of 41 m/s is compatible with a mitral valve area of 1.1 cm2. Peak mitral valve diastolic gradient of 16 mmHg and a mean gradient of 5 mmHg. Mitral diastolic velocities suggest mild left ventricular diastolic dysfunction (Grade I). Mild tricuspid regurgitation. Tricuspid systolic velocities suggests peak right ventricular systolic pressure of 53 mmHg, consistent with moderate pulmonary hypertension. Trace pulmonic regurgitation present.
[2018-02-25] MEDS ORDERED: Aspirin Baby 81mg ORAL SCH (09:00)
== END 2018-02-24 14:05 | disposition home health service (06) | DRG 193 ==
LOC: EDBD 09:18 → EMR 09:35 → EDBEDREQ 11:45 → 2E 12:22
PROC: 5A1D70Z Performance of Urinary Filtration, Intermittent, Less than 6 Hours Per Day (ICD-10-PCS; principal; 2018-02-23)
DX: J18.9 Pneumonia, unspecified organism (principal); N18.6 End stage renal disease; T82.318A Breakdown (mechanical) of other vascular grafts, initial encounter; I12.0 Hypertensive chronic kidney disease with stage 5 chronic kidney disease or end stage renal disease; G93.49 Other encephalopathy; M79.602 Pain in left arm; I25.10 Atherosclerotic heart disease of native coronary artery without angina pectoris; M10.9 Gout, unspecified; Y83.2 Surgical operation with anastomosis, bypass or graft as the cause of abnormal reaction of the patient, or of later complication, without mention of misadventure at the time of the procedure; Z99.2 Dependence on renal dialysis; Z88.0 Allergy status to penicillin; Z87.891 Personal history of nicotine dependence
CPT/HCPCS: 36415; 71045; 80048; 80053; 80076; 82607; 82728; 82746; 83540; 83550; 83735; 84100; 84484; 84550; 85025; 85610; 85730; 86850; 86900; 86901; 87081; 93005; 93306; 96365; 96366; 99282; 99285

== ENCOUNTER 2019-06-28 18:08 | Emergency (ER) | payer MEDICARE, OTHER ==
[~2019-06-28] VITALS: Ht 180.3 cm; Wt 86.2 kg
[~2019-06-28 18:08] MED LIST: ALLOPURINOL100 M1 ORAL; ASPIR 8181 MG ORAL; COREG3.125 MG ORAL; FUROSEMIDE20 M1 ORAL; POTASSIUM CHLO10 MEQ ORAL
--- NOTE | 2019-06-28 18:28 | Emergency Room Report ---
History of Present Illness General Chief Complaint: Dyspnea/Respdistress Source: Patient Present Illness HPI Disclaimer: Please note that this report is being documented using DRAGON technology. This can lead to erroneous entry secondary to incorrect interpretation by the dictating instrument. HPI: 74-year-old male with a history of CAD status post recent stent, CHF presenting for sudden onset shortness of breath. Occurred approximately 1.5 hours ago while he was laying at rest. Just feels like he cannot catch his breath enough. Mild cough. Denied lower extremity swelling. Ischemic compliant with medications. Scheduled to see his soldering machine feeder tomorrow. Denying any chest pain at this time or discomfort. Denies smoking history, denies COPD. Last dialysis was 2 days ago. Goes TRS PMH: CAD, CHF, ESRD, PSH: Recent cardiac stent Allergies: Penicillin Social Hx: Non-smoker Allergies: Coded Allergies: PENICILLINS (Verified Allergy, Unknown, 02/22/18) Nursing Documentation-PMH Past Medical History: No History, Except For Hx Hypertension: Yes Hx Cancer: No Hx Gastrointestinal Problems: No Hx Dialysis: Yes - M, T, TH, Sat Hx Neurological Problems: No Review of Systems All Other Systems: negative except mentioned in HPI Physical Exam Vital Signs Date Time Temp Pulse Resp B/P (MAP) Pulse Ox O2 Delivery O2 Flow Rate FiO2 06/28/19 18:14 98.2 98 26 176/109 (131) 98 Room Air General: Awake and alert, no acute distress HEENT: NC/AT. EOMI. Cardiovascular: RRR. S1 and S2 normal. No murmur appreciated Resp: Normal work of breathing. Scant wheezes bilaterally. Abdomen: Abdomen is soft, nondistended. Nontender Skin: Intact. No abrasions, laceration or rash over the exposed skin MSK: Normal tone and bulk. Moving all extremities. No obvious deformity. Neuro: Awake and alert. Mentating appropriately. Medical Decision Making Diagnostic Impression: Primary Impression: Shortness of breath ER Course This is a 74-year-old male recent stent presenting for evaluation of sudden onset shortness of breath. Differential includes was not limited to ACS, arrhythmia, CHF exacerbation, undiagnosed COPD, bronchitis, pneumonia. We will start a broad metabolic infectious and cardiac work-up. Laboratory Tests Test 06/28/19 18:45 White Blood Count 6.5 K/UL (4.8-10.8) Red Blood Count 3.43 M/UL (4.70-6.10) L Hemoglobin 10.9 G/DL (14.2-18.0) L Hematocrit 32.9 % (42.0-52.0) L Mean Corpuscular Volume 96 FL (80-99) Mean Corpuscular Hemoglobin 31.8 PG (27.0-31.0) H Mean Corpuscular Hemoglobin Concent 33.1 G/DL (32.0-36.0) Red Cell Distribution Width 16.0 % (11.6-14.8) H Platelet Count 130 K/UL (150-450) L Mean Platelet Volume 7.3 FL (6.5-10.1) Neutrophils (%) (Auto) 42.1 % (45.0-75.0) L Lymphocytes (%) (Auto) 25.9 % (20.0-45.0) Monocytes (%) (Auto) 14.9 % (1.0-10.0) H Eosinophils (%) (Auto) 15.2 % (0.0-3.0) H Basophils (%) (Auto) 1.9 % (0.0-2.0) Sodium Level 142 MMOL/L (136-145) Potassium Level 5.0 MMOL/L (3.5-5.1) Chloride Level 98 MMOL/L (98-107) Carbon Dioxide Level 29 MMOL/L (21-32) Anion Gap 16 mmol/L (5-15) H Blood Urea Nitrogen 62 mg/dL (7-18) H Creatinine 9.1 MG/DL (0.55-1.30) H Estimate Glomerular Filtration Rate 6.9 mL/min (>60) Glucose Level 79 MG/DL (74-106) Calcium Level 9.2 MG/DL (8.5-10.1) Total Bilirubin 0.7 MG/DL (0.2-1.0) Aspartate Amino Transferase (AST) 22 U/L (15-37) Alanine Aminotransferase (ALT) 24 U/L (12-78) Alkaline Phosphatase 108 U/L (46-116) Troponin I 0.106 ng/mL (0.000-0.056) Pro-B-Type Natriuretic Peptide 83144 pg/mL (0-125) H Total Protein 7.9 G/DL (6.4-8.2) Albumin 3.9 G/DL (3.4-5.0) Globulin 4.0 g/dL Albumin/Globulin Ratio 1.0 (1.0-2.7) EKG Diagnostic Results EKG Time: 18:16 Rate: normal Rhythm: NSR ST Segments: no acute changes Other Impression Sinus rhythm with first-degree AV block, normal axis, no ST segment changes ASA given to the pt in ED: Yes Rhythm Strip Diag. Results Rhythm Strip Time: 18:16 EP Interpretation: yes Rate: 90 Rhythm: NSR, no PVC's, no ectopy Chest X-Ray Diagnostic Results Chest X-Ray Diagnostic Results : Chest X-Ray Ordered: Yes # of Views/Limited/Complete: 1 View Indication: Shortness of Breath EP Interpretation: Yes Interpretation: other - Bilateral opacities. Signs of congestion Impression: Other - Bilateral opacities and congestion. Not significantly changed from prior xr Electronically Signed by: Electronically signed by Dr. Noe Marie Reevaluation Time: 20:01 Last Vital Signs Date Time Temp Pulse Resp B/P (MAP) Pulse Ox O2 Delivery O2 Flow Rate FiO2 1720 18:14 98.2 98 26 176/109 (131) 98 Room Air Reevaluation Impression Patient is feeling well after receiving a few breathing treatments and saturating 100% on room air. He has no chest pain and has not had any during his emergency department stay. Slightly elevated troponin though still not at the upper level of the patient's previous values. I discussed with his soldering machine feeder, Dr. Salgado, who has an appointment with the patient either tomorrow or the following day. The patient is also due for hemodialysis tomorrow. Believe he is slightly volume overloaded but does not require emergent dialysis at this time. Elevated BNP. Patient scheduled for dialysis early in the morning. He will need follow-up with Dr. Salgado. He would like to be discharged with an albuterol inhaler which we will provide also put him on doxycycline for a week cover him given his multiple risk factors. He is to follow-up with his soldering machine feeder and PMD. Discussed reasons to return to the emergency department. He understands and agrees with treatment plan. Disposition: HOME, SELF-CARE Condition: Stable Scripts Doxycycline Monohydrate* (DOXYCYCLINE MONOHYDRATE*) 100 Mg Capsule 100 MG ORAL Q12H, #14 CAP 0 Refills Prov: Noe Marie MD 06/28/19 Albuterol Sulfate* (ALBUTEROL SULFATE MDI*) 8.5 Gm Hfa.aer.ad 2 PUFF INH Q4H PRN for cough/wheezing, #1 EA 0 Refills Prov: Noe Marie MD 06/28/19 Noe Marie MD Jun 28, 2019 18:28
--- NOTE | 2019-06-28 18:30 | NUR ---
ED Nurse Note: brought in by ambulance eduardo ra 24 from home c/o sob x 1 hr. hd tths; last hd 06/26/19. active shunt present on right upper extremity; old healed shunt on left upper extremity. patient ao4. nad. vss. changed into gown; attached to monitor; nsr. side rails raised; bed locked at lowest position. will continue to monitor.
[2019-06-28] MEDS: Albuterol/Ipratropium 3ml neb HHN SCH ×3 (18:35→18:55)
--- NOTE | 2019-06-28 18:41 | NUR ---
ED Nurse Note: rt and ertech at bedisde for breathing tx and ekg.
[2019-06-28 18:45] VITALS: BP 148/79
--- NOTE | 2019-06-28 18:45 | NUR ---
ED Nurse Note: iv access established. blood collected;s ent down to lab.
[2019-06-28 19:15] LABS: ANION GAP 16 mmol/L (5-15); BLOOD UREA NITROGEN 62 mg/dL (7-18); CALCIUM 9.2 MG/DL (8.5-10.1); CARBON DIOXIDE 29 MMOL/L (21-32); CHLORIDE 98 MMOL/L (98-107); CREATININE 9.1 MG/DL (0.55-1.30); SODIUM 142 MMOL/L (136-145)
[2019-06-28 19:26] LABS: ALANINE AMINOTRANSFERASE 24 U/L (12-78); ALBUMIN 3.9 G/DL (3.4-5.0); ALKALINE PHOSPHATASE 108 U/L (46-116); ASPARTATE AMINO TRANSFERASE 22 U/L (15-37); BILIRUBIN,TOTAL 0.7 MG/DL (0.2-1.0)
--- NOTE | 2019-06-28 19:38 | Diagnostic Imaging Report ---
Indication: Shortness of Technique: One view of the chest Comparison: 02/22/2018 Findings: The heart is enlarged. There is pulmonary venous congestion and hazy airspace disease involving right middle and lower lung. There is probably a small right pleural effusion. The aorta is tortuous and calcified. Impression: Pulmonary venous congestion and bilateral hazy infiltrates versus edema, as described Small right pleural effusion Cardiomegaly This agrees with the preliminary interpretation provided overnight by [facility] teleradiology service.
[2019-06-28 19:49] LABS: BASOPHILS % (AUTO) 1.9 % (0.0-2.0); EOSINOPHILS % (AUTO) 15.2 % (0.0-3.0); HEMATOCRIT 32.9 % (42.0-52.0); HEMOGLOBIN 10.9 G/DL (14.2-18.0); LYMPHOCYTES % (AUTO) 25.9 % (20.0-45.0); MEAN CORPUSCULAR VOLUME 96 FL (80-99); MONOCYTES % (AUTO) 14.9 % (1.0-10.0); NEUTROPHILS % (AUTO) 42.1 % (45.0-75.0); PLATELET COUNT 130 K/UL (150-450); RED BLOOD COUNT 3.43 M/UL (4.70-6.10); WHITE BLOOD COUNT 6.5 K/UL (4.8-10.8)
[2019-06-28] MEDS ORDERED: DOXYCYCLINE MO100 MG ORAL (19:58)
[2019-06-28] MEDS ORDERED: ALBUTEROL SULF8.5 GM INH (19:58)
[2019-06-28 20:00] VITALS: BP 148/79
--- NOTE | 2019-06-28 20:00 | NUR ---
ER DISCHARGE NOTE: Patient is cleared to be discharged per ERMD, pt is aox4, on room air, with stable vital signs. pt was given dc and prescription instructions, pt was able to verbalize understanding, pt id band and iv site removed without complications. pt is able to ambulate with steady gait. pt took all belongings. patient states he will wait for his ride in the waiting room.
== END 2019-06-28 20:00 | disposition home or self-care (01) ==
LOC: EDUNIT# 18:08 → EDBD 18:08 → EMR 18:20
DX: R06.02 Shortness of breath (principal); Z88.0 Allergy status to penicillin; Z95.5 Presence of coronary angioplasty implant and graft; I44.0 Atrioventricular block, first degree; N18.6 End stage renal disease; Z99.2 Dependence on renal dialysis; I11.0 Hypertensive heart disease with heart failure; I25.10 Atherosclerotic heart disease of native coronary artery without angina pectoris
CPT/HCPCS: 36415; 71045; 80053; 83880; 84484; 85025; 93005; 99284; J7620

== ENCOUNTER 2020-03-04 07:39 | Inpatient (IN) | payer MEDICARE, OTHER ==
[~2020-03-04] VITALS: Ht 180.3 cm; Wt 85.0 kg
[~2020-03-04 07:39] MED LIST changes: +ALBUTEROL SULF8.5 GM INH; +DOXYCYCLINE MO100 MG ORAL
[2020-03-04] MEDS ORDERED: Albuterol ud Inhalation HHN SCH (07:45)
[2020-03-04] MEDS ORDERED: Ipratropium 0.02% Inh Soln 2.5ml UD HHN SCH (07:45)
--- NOTE | 2020-03-04 07:45 | NUR ---
ED Nurse Note: Pt brought in by ambulance frmo home d/t SOB x 4 hours. Pt has hx of ESRD with HD T//S. Last dialysis 03/02. BS by EMS 66. Pt has no IV access, will give cranberry juice. Respirations even and unlabored on 2 L NC with 91% O2 sat. HR elevated @ 119, sinus with PVCs. Pt A+Ox4, speaking in complete sentences. All other vitals stable as documented.
--- NOTE | 2020-03-04 07:48 | NUR ---
ED Nurse Note: DR. DELGADO MADE AWARE OF PT.'S ACCUCHECK OF 58 UPON ER ARRIVAL. PT. WAS GIVEN CRANBERRY JUICE WITH ADDED SUGAR IN IT.
[2020-03-04 07:50] VITALS: BP 130/88
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
[2020-03-04 08:19] LABS: BASOPHILS % (AUTO) 2.1 % (0.0-2.0); EOSINOPHILS % (AUTO) 2.2 % (0.0-3.0); HEMATOCRIT 38.4 % (42.0-52.0); HEMOGLOBIN 12.4 G/DL (14.2-18.0); LYMPHOCYTES % (AUTO) 19.1 % (20.0-45.0); MEAN CORPUSCULAR VOLUME 94 FL (80-99); MONOCYTES % (AUTO) 18.4 % (1.0-10.0); NEUTROPHILS % (AUTO) 58.3 % (45.0-75.0); PLATELET COUNT 124 K/UL (150-450); RED BLOOD COUNT 4.11 M/UL (4.70-6.10); RED CELL DISTRIBUTION WIDTH 16.9 % (11.6-14.8)
[2020-03-04] MEDS ORDERED: Nitroglycerin Subl 0.4mg tab SL PRN (08:30)
[2020-03-04] MEDS ORDERED: Nitroglycerin 2% oint pkt TOPIC ONE (08:30)
--- NOTE | 2020-03-04 08:30 | NUR ---
ED Nurse Note: Pt desaturated to 76% on 2 L NC. RT @ bedside applied venturi mask, 14 L @ 55% Fio2.
[2020-03-04 08:34] LABS: INR 1.3 (0.9-1.1)
--- NOTE | 2020-03-04 08:45 | Diagnostic Imaging Report ---
EXAM: XR Chest, 1 View CLINICAL HISTORY: SOB TECHNIQUE: Frontal view of the chest. COMPARISON: 06/28/19 FINDINGS: Lungs: There is unchanged mild perihilar lower lobe pulmonary edema. Pleural space: There unchanged small bilateral pleural effusions. No pneumothorax. Heart: There is unchanged cardiomegaly. Mediastinum: Unremarkable. Bones/joints: Unremarkable. IMPRESSION: Unchanged mild CHF
[2020-03-04 08:57] LABS: ALBUMIN 3.5 G/DL (3.4-5.0); ALBUMIN/GLOBULIN RATIO 0.8 (1.0-2.7); BILIRUBIN,TOTAL 1.5 MG/DL (0.2-1.0); CALCIUM 9.6 MG/DL (8.5-10.1); CKMB 2.5 NG/ML (0.0-3.6); CREATININE 11.7 MG/DL (0.55-1.30)
--- NOTE | 2020-03-04 08:58 | NUR ---
ED Nurse Note: ABG back on patient. Oxygen level too high. Pt placed back on 2 L NC per ED MD order. Pt able to converse with staff, showing no signs of respiratory distress.
[2020-03-04 09:01] LABS: POTASSIUM 6.4 MMOL/L (3.5-5.1)
[2020-03-04 09:03] LABS: BILIRUBIN,DIRECT 0.4 MG/DL (0.0-0.3)
[2020-03-04] MEDS ORDERED: Calcium Gluconate 1gm/10ml vial IVP ONE (09:15)
[2020-03-04] MEDS ORDERED: Insulin Human Regular 100units/ml 3ml IV ONE (09:15)
--- NOTE | 2020-03-04 09:40 | NUR ---
ED Nurse Note: report given to LACHO Salas on 2E
--- NOTE | 2020-03-04 09:42 | NUR ---
ED Nurse Note: pt transferred safely to 2E on the monitor. Pt transferred with all belongings including 40$ juares and cellphone.
[2020-03-04] MEDS ORDERED: Albuterol/Ipratropium 3ml neb HHN PRN (11:45)
[2020-03-04 12:00] VITALS: BP 116/84
[2020-03-04] MEDS: Doxycycline Monohydrate 100mg ORAL SCH (12:18)
[2020-03-04] MEDS: cefTRIAXone 1 GM in D5W 55 ML IVPB SCH (12:30)
[2020-03-04] MEDS: traMADol 50mg tab ORAL PRN ×2 (13:29→22:47)
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
[2020-03-04 16:00] VITALS: BP 112/88
--- NOTE | 2020-03-04 19:30 | NUR ---
NURSE NOTES: Pt received from LACHO Salas. Pt is sitting in bed comfortably and denies any pain. Pt is A/O x4 and is on bedrest due to weakness. Pt is on cardiac monitoring SR and asymptomatic. Pt is breathing unlabored on RA and has taken off NC. Pt received dialysis today and had 2L of fluid removed. Pt has REJ running IV antibiotics patent with skin dry and intact. Bed is locked in lowest position with call light within reach. Will continue to monitor.
[2020-03-04 20:00] VITALS: BP 111/82
[2020-03-05] VITALS (7 sets, daily range): BP systolic 89–133; BP diastolic 33–80
[2020-03-05] MEDS: Doxycycline Monohydrate 100mg ORAL SCH ×3 (01:00→23:34)
--- NOTE | 2020-03-05 01:45 | History and Physical Report ---
DATE OF ADMISSION: 03/04/2020 HISTORY OF PRESENT ILLNESS: This is a 75-year-old, previously admitted at [facility] multiple times for shortness of breath, CHF, cardiomyopathy, and acute DC. The patient came back from home where he had called 911 with shortness of breath, CHF, chest pain. The patient denies any fever or chills. PAST MEDICAL HISTORY: Significant for cardiomyopathy, status post ICD placement, CHF, end-stage renal disease, hypertension. MEDICATIONS: See the list. ALLERGIES: NKA. FAMILY HISTORY: Noncontributory. SOCIAL HISTORY: Lives at home by himself. Denies any smoking or drinking. Denies any illegal drugs. REVIEW OF SYSTEMS: Generalized weakness, tired, short of breath, cough, but is improving. Still having whole-body ache. PHYSICAL EXAMINATION: VITAL SIGNS: Blood pressure is 168/78, pulse 68, respirations 19, saturation 95%, temperature 97.4. HEENT: AT/NC. EOMI. PERRLA. NECK: Supple. No JVD. CHEST: Bilaterally scattered crackles and wheezing. CARDIOVASCULAR: Regularly rhythm. ABDOMEN: Soft. Positive bowel sounds. Nontender. EXTREMITIES: No edema. GENITOURINARY: Deferred. LABORATORY WORK: His ABG pH 7.34, bicarb 35, pO2 . His white counts are 9, hemoglobin 12, hematocrit 38, platelets are 124. Chemistry, sodium 134, potassium 6.4, BUN 72, creatinine 11.7. Troponins are 0.15. BNP was 23,000. His chest x-ray is showing mild CHF. ASSESSMENT AND PLAN: 1. Hyperkalemia. 2. CHF. 3. Generalized body ache. 4. Positive troponin. 5. Anemia. We will admit on telemetry bed. Consider cardiology consult. Add Lasix. Nephrology consult. Continue pain medication, tramadol, and beta-guillermo. Continue anticoagulation. Discussed with Dr. Moon. Reggie Benavidez M.D. DR: HOWARD JOB#: [id number] CC:
--- NOTE | 2020-03-05 07:23 | NUR ---
NURSE NOTES: Called Dr Benavidez to let him know pt had an episode of bigeminy with pvc's. Waiting for a call back.
--- NOTE | 2020-03-05 07:27 | NUR ---
NURSE HAND-OFF REPORT: Important Events on Shift:Pt received dialysis and had 2l removed Patient Status: Stable Diet: Pending Orders: Pending Results/Labs:AM Labs Pending MD notification: Latest Vital Signs: Temperature 97.7 , Pulse 96 , B/P 122 /77 , Respiratory Rate 18 , O2 SAT 95 , Room Air, O2 Flow Rate 2.0 . Vital Sign Comment: VSS EKG Rhythm: Sinus Tachycardia Rhythm change?: N MD Notified?: - MD Response: Latest Colbert Fall Score: 45 Fall Risk: High Risk Safety Measures: Call light Within Reach, Bed Alarm Zone 1, Side Rails Side Rails x2, Bed position Low and Locked. Fall Precautions: Yellow Gown Patient Fall Education Report given to LACHO Clifton.
[2020-03-05] MEDS: traMADol 50mg tab ORAL PRN ×2 (07:57→22:46)
--- NOTE | 2020-03-05 08:12 | NUR ---
NURSE NOTES: Received report from Gomez/RN. Pt in bed sleeping. On room air, no distress or SOB noted. Able to make needs known. IV on right IJ, SL, patent and clean. AV shunt in both arms, right side used for dialysis. Bed in the lowest position and locked. Call light within reach, encouraged to use it when needed. Side rails up X2. Will continue plan of care.
[2020-03-05] MEDS: Solu-MEDROL 40mg Inj IVP SCH (08:40)
[2020-03-05] MEDS: Allopurinol 100mg Tab ORAL SCH (08:40)
[2020-03-05] MEDS ORDERED: Aspirin EC 81mg tab ORAL SCH (09:00)
--- NOTE | 2020-03-05 11:24 | General Progress Note ---
Subjective Date patient seen: Mar 05, 2020 Constitutional: Reports: malaise, weakness HEENT: Reports: no symptoms Cardiovascular: Reports: chest pain, edema Respiratory: Reports: cough, orthopnea, shortness of breath, SOB with excertion Gastrointestinal/Abdominal: Reports: abdominal pain Allergies: Coded Allergies: PENICILLINS (Verified Allergy, Unknown, 02/22/18) Subjective sob weakness dizziness Objective Last 24 Hour Vital Signs Date Time Temp Pulse Resp B/P (MAP) Pulse Ox O2 Delivery O2 Flow Rate FiO2 03/05/20 08:37 78 89/33 03/05/20 08:00 96.7 78 20 89/33 (51) 91 03/05/20 08:00 81 03/05/20 04:00 82 03/05/20 04:00 97.7 96 18 122/77 (92) 95 03/05/20 00:00 98.6 100 18 114/80 (91) 96 03/05/20 00:00 82 03/04/20 22:35 97.4 03/04/20 21:00 Room Air 03/04/20 20:38 68 168/78 03/04/20 20:00 97.4 104 18 111/82 (92) 96 03/04/20 20:00 91 03/04/20 16:00 95 03/04/20 16:00 97.4 109 19 112/88 (96) 95 03/04/20 12:54 Nasal Cannula 2.0 03/04/20 12:00 109 03/04/20 12:00 97.5 103 18 116/84 (95) 96 Intake and Output 03/04/20 03/05/20 19:00 07:00 Intake Total 2180 ml 480 ml Output Total 2000 ml Balance 180 ml 480 ml Intake Oral 180 ml 480 ml Hemodialysis 2000 ml Output Hemodialysis UF 2000 ml # Voids 1 Laboratory Tests 03/04/20 13:10: Hepatitis B Surface Antigen [Pending] Height (Feet): 5 Height (Inches): 11.00 Weight (Pounds): 181 General Appearance: alert EENT: PERRL/EOMI, scleral icterus Neck: non-tender, supple Cardiovascular: regular rhythm Respiratory/Chest: expiratory wheezing Abdomen: non tender, soft Edema: mild edema Neurologic: inclusion special educator II-XII grossly normal Skin: warm/dry Assessment/Plan Assessment/Plan: 1 hypotension hold bp meds , monitor bp 2 chf on lasix, cardio eval, fluid restriction 3 fluid overload 4 esrd hd depended 5 dizziness stay in bed , hd today Janes Benavidez MD Mar 05, 2020 11:24
--- NOTE | 2020-03-05 11:25 | NUR ---
PT EVALUATION NOTE Patient seen for initial evaluation and treatment initiated. Patient presents with generalized weakness and decreased balance which impairs patient's ability to perform mobility tasks safely. Patient required SBA for bed mobility and min assist for transfers with FWW. Patient able to take several small sideways steps with min assist and FWW, unable to ambulate. Patient will benefit from skilled inpatient PT intervention to increase strength and postural stability for improved level of functional mobility. Recommend discharge to SNF for continued rehab once medically cleared by MD. Addendum: 03/05/20 at 1153 by NEREYDA OG PT Amended: Links added.
[2020-03-05] MEDS: cefTRIAXone 1 GM in D5W 55 ML IVPB SCH (13:03)
--- NOTE | 2020-03-05 13:09 | Nephrology Progress Note ---
Assessment/Plan Assessment 1. End-stage renal disease. 2. Hyperkalemia. 3. Hyponatremia. 4. Anemia of chronic kidney disease. 5. Tachycardia. Plan dialysis as schedule monitoring phos,PTH Continue epogen low k diet continue with current antihypertensive med Subjective Constitutional: Reports: weakness HEENT: Reports: no symptoms Genitourinary: Reports: no symptoms Neurologic/Psychiatric: Reports: no symptoms Subjective had dialysis yesterday Objective Objective Last 24 Hour Vital Signs Date Time Temp Pulse Resp B/P (MAP) Pulse Ox O2 Delivery O2 Flow Rate FiO2 03/05/20 12:00 98.1 73 20 115/68 (84) 92 03/05/20 09:00 Room Air 03/05/20 08:37 78 89/33 03/05/20 08:00 96.7 78 20 89/33 (51) 91 03/05/20 08:00 81 03/05/20 04:00 82 03/05/20 04:00 97.7 96 18 122/77 (92) 95 03/05/20 00:00 98.6 100 18 114/80 (91) 96 03/05/20 00:00 82 03/04/20 22:35 97.4 03/04/20 21:00 Room Air 03/04/20 20:38 68 168/78 03/04/20 20:00 97.4 104 18 111/82 (92) 96 03/04/20 20:00 91 03/04/20 16:00 95 03/04/20 16:00 97.4 109 19 112/88 (96) 95 Intake and Output 03/04/20 03/05/20 19:00 07:00 Intake Total 2180 ml 480 ml Output Total 2000 ml Balance 180 ml 480 ml Intake Oral 180 ml 480 ml Hemodialysis 2000 ml Output Hemodialysis UF 2000 ml # Voids 1 Laboratory Tests 03/04/20 13:10: Hepatitis B Surface Antigen [Pending] Height (Feet): 5 Height (Inches): 11.00 Weight (Pounds): 181 Objective HEAD AND NECK: No JVP. No LAD. No thyromegaly. Extraocular movement intact. Pupils are reactive to light and accommodation. LUNGS: Clear to auscultation. CARDIAC: Regular rate and rhythm. S1 and S2. No murmur. No rubs. ABDOMEN: Soft, nontender, and nondistended. EXTREMITIES: No edema. No clubbing. No cyanosis. Flora Moon MD Mar 05, 2020 13:09
[2020-03-05 13:39] LABS: BASOPHILS % (AUTO) 0.6 % (0.0-2.0); EOSINOPHILS % (AUTO) 1.3 % (0.0-3.0); HEMATOCRIT 34.7 % (42.0-52.0); HEMOGLOBIN 10.8 G/DL (14.2-18.0); LYMPHOCYTES % (AUTO) 14.3 % (20.0-45.0); MEAN CORPUSCULAR VOLUME 94 FL (80-99); MONOCYTES % (AUTO) 4.5 % (1.0-10.0); NEUTROPHILS % (AUTO) 79.3 % (45.0-75.0); PLATELET COUNT 112 K/UL (150-450); RED BLOOD COUNT 3.68 M/UL (4.70-6.10); RED CELL DISTRIBUTION WIDTH 16.4 % (11.6-14.8); WHITE BLOOD COUNT 5.8 K/UL (4.8-10.8)
[2020-03-05 14:05] LABS: CALCIUM 8.8 MG/DL (8.5-10.1); CREATININE 9.3 MG/DL (0.55-1.30); POTASSIUM 5.3 MMOL/L (3.5-5.1)
--- NOTE | 2020-03-05 15:11 | Cardiology Progress Note ---
Assessment/Plan Assessment/Plan The patient is seen and examined, full consult note is dictated. Objective Last 24 Hour Vital Signs Date Time Temp Pulse Resp B/P (MAP) Pulse Ox O2 Delivery O2 Flow Rate FiO2 03/05/20 12:00 76 03/05/20 12:00 98.1 73 20 115/68 (84) 92 03/05/20 09:00 Room Air 03/05/20 08:37 78 89/33 03/05/20 08:00 96.7 78 20 89/33 (51) 91 03/05/20 08:00 81 03/05/20 04:00 82 03/05/20 04:00 97.7 96 18 122/77 (92) 95 03/05/20 00:00 98.6 100 18 114/80 (91) 96 03/05/20 00:00 82 03/04/20 22:35 97.4 03/04/20 21:00 Room Air 03/04/20 20:38 68 168/78 03/04/20 20:00 97.4 104 18 111/82 (92) 96 03/04/20 20:00 91 03/04/20 16:00 95 03/04/20 16:00 97.4 109 19 112/88 (96) 95 Intake and Output 03/04/20 03/05/20 19:00 07:00 Intake Total 2180 ml 480 ml Output Total 2000 ml Balance 180 ml 480 ml Intake Oral 180 ml 480 ml Hemodialysis 2000 ml Output Hemodialysis UF 2000 ml # Voids 1 Laboratory Tests Test 03/05/20 13:30 White Blood Count 5.8 K/UL (4.8-10.8) Red Blood Count 3.68 M/UL (4.70-6.10) L Hemoglobin 10.8 G/DL (14.2-18.0) L Hematocrit 34.7 % (42.0-52.0) L Mean Corpuscular Volume 94 FL (80-99) Mean Corpuscular Hemoglobin 29.3 PG (27.0-31.0) Mean Corpuscular Hemoglobin Concent 31.2 G/DL (32.0-36.0) L Red Cell Distribution Width 16.4 % (11.6-14.8) H Platelet Count 112 K/UL (150-450) L Mean Platelet Volume 6.8 FL (6.5-10.1) Neutrophils (%) (Auto) 79.3 % (45.0-75.0) H Lymphocytes (%) (Auto) 14.3 % (20.0-45.0) L Monocytes (%) (Auto) 4.5 % (1.0-10.0) Eosinophils (%) (Auto) 1.3 % (0.0-3.0) Basophils (%) (Auto) 0.6 % (0.0-2.0) Sodium Level 134 MMOL/L (136-145) L Potassium Level 5.3 MMOL/L (3.5-5.1) H Chloride Level 101 MMOL/L (98-107) Carbon Dioxide Level 24 MMOL/L (21-32) Anion Gap 9 mmol/L (5-15) Blood Urea Nitrogen 57 mg/dL (7-18) H Creatinine 9.3 MG/DL (0.55-1.30) H Estimat Glomerular Filtration Rate 6.7 mL/min (>60) Glucose Level 195 MG/DL (74-106) #H Calcium Level 8.8 MG/DL (8.5-10.1) Magnesium Level 2.3 MG/DL (1.8-2.4) Pro-B-Type Natriuretic Peptide 83858 pg/mL (0-125) H Microbiology Date/Time Source Procedure Growth Status 03/04/20 09:20 Rectum Received 03/04/20 07:55 Nasopharynx SARS-CoV-2 RdRp Gene Assay - Final Complete Chris Vicente MD Mar 05, 2020 15:11
--- NOTE | 2020-03-05 16:10 | NUR ---
CASE MANAGEMENT:REVIEW 75 YR OLD MALE BIBA FROM HOME CC: SOB PMH: ESRD SI: ELEVATED TROPONIN. CHF. HYPERKALEMIA 96.5 120 16 152/100 76% ON 2L/NC K-6.4 BUN+72 CR+11.7 TROPONIN(+) 0.157 IS: PLACED ON VENTURI MASK 55% FIO2 DUONEB HHN IV D50W NITRO 2" IV CA GLU IV INSULIN : TO TELEMETRY
[2020-03-05] MEDS: Metoprolol Succinate XL 25mg tab ORAL SCH (16:19)
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
--- NOTE | 2020-03-05 19:18 | NUR ---
NURSE HAND-OFF REPORT: Important Events on Shift:Pt had an episode of bigeminy with PVC's today. Low BP 89/33. notified. Patient Status: Stable Diet: Renal Pending Orders: Pending Results/Labs: Pending MD notification: Latest Vital Signs: Temperature 97.1 , Pulse 78 , B/P 133 /78 , Respiratory Rate 18 , O2 SAT 92 , Room Air, O2 Flow Rate 2.0 . Vital Sign Comment: Stable EKG Rhythm: Sinus Rhythm Rhythm change?: N MD Notified?: - MD Response: Latest Colbert Fall Score: 45 Fall Risk: High Risk Safety Measures: Call light Within Reach, Bed Alarm Zone 1, Side Rails Side Rails x2, Bed position Low and Locked. Fall Precautions: Yellow Gown Patient Fall Education Report given to Celestine/RN.
--- NOTE | 2020-03-05 19:25 | NUR ---
NURSE NOTES: Patient received from Elodia RN. Patient in bed comfortable. Alert and oriented x4. No c/o pain and no s/s of respiratory distress. Saturating well on RA. IV site patent and intact on the Right IJ SL. AV shunt (+) for bruit and thrills on the Right arm. Bed in lowest position and locked. Call light and bedside table within reach. WIll continue plan of care.
[2020-03-05] MEDS: Atorvastatin 80mg tab ORAL SCH (20:09)
--- NOTE | 2020-03-05 22:15 | NUR ---
NURSE NOTES: Patient complained of constipation noted to have no bowel movement for about 3 days. Called Attending MD and gave orders for Colace and Lactulose verified and carried out.
[2020-03-05] MEDS ORDERED: Lactulose 20gm/30ml UDC ORAL PRN (22:24)
[2020-03-05] MEDS: Docusate 250mg cap ORAL SCH (22:46)
[2020-03-06 04:00] VITALS: BP 104/63
[2020-03-06] MEDS: traMADol 50mg tab ORAL PRN (05:03)
[2020-03-06 06:51] LABS: BASOPHILS % (AUTO) 0.5 % (0.0-2.0); EOSINOPHILS % (AUTO) 0.1 % (0.0-3.0); HEMATOCRIT 32.8 % (42.0-52.0); HEMOGLOBIN 10.3 G/DL (14.2-18.0); LYMPHOCYTES % (AUTO) 14.4 % (20.0-45.0); MEAN CORPUSCULAR VOLUME 94 FL (80-99); MONOCYTES % (AUTO) 15.1 % (1.0-10.0); NEUTROPHILS % (AUTO) 69.9 % (45.0-75.0); PLATELET COUNT 123 K/UL (150-450); RED BLOOD COUNT 3.49 M/UL (4.70-6.10); RED CELL DISTRIBUTION WIDTH 16.6 % (11.6-14.8)
[2020-03-06 07:16] LABS: ALBUMIN 3.3 G/DL (3.4-5.0); ALBUMIN/GLOBULIN RATIO 0.9 (1.0-2.7); BILIRUBIN,TOTAL 0.7 MG/DL (0.2-1.0); CALCIUM 8.9 MG/DL (8.5-10.1); CREATININE 10.9 MG/DL (0.55-1.30); PHOSPHORUS 6.1 MG/DL (2.5-4.9)
--- NOTE | 2020-03-06 07:30 | NUR ---
NURSE NOTES: Received pt from LACHO Sprague, Pt is awake and alert, pt is in RA, no SOB or acute respiratory distress noted. pt has intact iv access RIJ 20G SL. pt is on continues heart monitoring. pt is eating breakfast by observation. no complain of pain at this moment. All needs attended, bed is locked and is in the lowest position, call light within easy reach. will continue to monitor.
--- NOTE | 2020-03-06 07:37 | NUR ---
NURSE HAND-OFF REPORT: Important Events on Shift:[Constipation new orders received] Patient Status: [Stable] Diet: [Renal Diet] Pending Orders: [] Pending Results/Labs:[] Pending MD notification:[] Latest Vital Signs: Temperature 96.2 , Pulse 68 , B/P 104 /63 , Respiratory Rate 18 , O2 SAT 93 , Room Air, O2 Flow Rate 2.0 . Vital Sign Comment: [] EKG Rhythm: SR with 1st Degree HB Rhythm change?: N MD Notified?: - MD Response: Latest Colbert Fall Score: 45 Fall Risk: High Risk Safety Measures: Call light Within Reach, Bed Alarm Zone 1, Side Rails Side Rails x2, Bed position Low and Locked. Fall Precautions: Yellow Gown Patient Fall Education Report given to [Yvette RN].
[2020-03-06 08:00] VITALS: BP 104/61
[2020-03-06] MEDS: Aspirin Baby 81mg ORAL SCH (08:29)
[2020-03-06] MEDS: Docusate 250mg cap ORAL SCH ×3 (08:29→17:30)
[2020-03-06] MEDS: Metoprolol Succinate XL 25mg tab ORAL SCH (08:29)
[2020-03-06] MEDS: Solu-MEDROL 40mg Inj IVP SCH (08:29)
[2020-03-06] MEDS: Allopurinol 100mg Tab ORAL SCH (08:29)
--- NOTE | 2020-03-06 11:04 | Nephrology Progress Note ---
Assessment/Plan Assessment 1. End-stage renal disease. 2. Hyperkalemia. 3. Hyponatremia. 4. Anemia of chronic kidney disease. 5. Tachycardia. Plan dialysis as schedule start Renvela 800 mg po tid Continue Epogen low k diet continue with current antihypertensive med Subjective Subjective seems to be sob Objective Objective Last 24 Hour Vital Signs Date Time Temp Pulse Resp B/P (MAP) Pulse Ox O2 Delivery O2 Flow Rate FiO2 03/06/20 09:00 Room Air 03/06/20 08:29 68 104/61 03/06/20 08:00 97.0 68 18 104/61 (75) 93 03/06/20 07:24 65 03/06/20 04:00 68 03/06/20 04:00 96.2 69 18 104/63 (77) 93 03/06/20 00:00 71 03/05/20 23:55 96.6 69 18 102/59 (73) 95 03/05/20 21:00 Room Air 03/05/20 20:00 70 03/05/20 20:00 96.6 71 17 111/76 (88) 93 03/05/20 16:19 78 133/78 03/05/20 16:00 76 03/05/20 16:00 97.1 78 18 133/78 (96) 92 03/05/20 12:00 76 03/05/20 12:00 98.1 73 20 115/68 (84) 92 Intake and Output 03/05/20 03/06/20 19:00 07:00 Intake Total 550 ml Balance 550 ml Intake Oral 550 ml # Voids 2 # Bowel Movements 1 Laboratory Tests 03/05/20 13:30: White Blood Count 5.8, Red Blood Count 3.68L, Hemoglobin 10.8L, Hematocrit 34.7L , Mean Corpuscular Volume 94, Mean Corpuscular Hemoglobin 29.3, Mean Corpuscular Hemoglobin Concent 31.2L, Red Cell Distribution Width 16.4H, Platelet Count 112L , Mean Platelet Volume 6.8, Neutrophils (%) (Auto) 79.3H, Lymphocytes (%) (Auto) 14.3L, Monocytes (%) (Auto) 4.5, Eosinophils (%) (Auto) 1.3, Basophils (%) (Auto) 0.6, Sodium Level 134L, Potassium Level 5.3H, Chloride Level 101, Carbon Dioxide Level 24, Anion Gap 9, Blood Urea Nitrogen 57H, Creatinine 9.3H, Estimat Glomerular Filtration Rate 6.7, Glucose Level 195#H, Calcium Level 8.8, Mag nesium Level 2.3, Pro-B-Type Natriuretic Peptide [id number] 03/06/20 06:10: White Blood Count 8.0, Red Blood Count 3.49L, Hemoglobin 10.3L, Hematocrit 32.8L , Mean Corpuscular Volume 94, Mean Corpuscular Hemoglobin 29.5, Mean Corpuscular Hemoglobin Concent 31.4L, Red Cell Distribution Width 16.6H, Platelet Count 123L , Mean Platelet Volume 6.5, Neutrophils (%) (Auto) 69.9, Lymphocytes (%) (Auto) 14.4L, Monocytes (%) (Auto) 15.1H, Eosinophils (%) (Auto) 0.1, Basophils (%) (Auto) 0.5, Sodium Level 135L, Potassium Level 5.0, Chloride Level 101, Carbon Dioxide Level 23, Anion Gap 11, Blood Urea Nitrogen 68H, Creatinine 10.9H, Estimat Glomerular Filtration Rate 5.6, Glucose Level 123H, Calcium Level 8.9, Phosphorus Level 6.1H, Total Bilirubin 0.7, Aspartate Amino Transf (AST/SGOT) 23, Alanine Aminotransferase (ALT/SGPT) 16, Alkaline Phosphatase 95, Total P rotein 7.1, Albumin 3.3L, Globulin 3.8, Albumin/Globulin Ratio 0.9L Height (Feet): 5 Height (Inches): 11.00 Weight (Pounds): 181 Objective HEAD AND NECK: No JVP. No LAD. No thyromegaly. Extraocular movement intact. Pupils are reactive to light and accommodation. LUNGS: Clear to auscultation. CARDIAC: Regular rate and rhythm. S1 and S2. No murmur. No rubs. ABDOMEN: Soft, nontender, and nondistended. EXTREMITIES: No edema. No clubbing. No cyanosis. Flora Moon MD Mar 06, 2020 11:04
--- NOTE | 2020-03-06 11:13 | NUR ---
NURSE NOTES: HD nurse Simón is aware about HD tomorrow. she will come. will continue to monitor.
[2020-03-06 11:51] VITALS: BP 104/65
[2020-03-06] MEDS: cefTRIAXone 1 GM in D5W 55 ML IVPB SCH (12:05)
[2020-03-06] MEDS: Doxycycline Monohydrate 100mg ORAL SCH (12:05)
--- NOTE | 2020-03-06 12:09 | NUR ---
CASE MANAGEMENT:REVIEW 03/06/20 SI: ELEVATED TROPONIN. CHF. HYPERKALEMIA ESRD ON HD 96.1 68 18 104/61 93% ON RA H/H-10.3/32.8 PLT-123 BUN+68 CR+10.9 IS: IV ROCEPHIN Q24 DOXYCYCLINE PO Q12 RENVELA PO TID ASA PO QD LACTULOSE PO BID PRN TOPROL XL PO QD IV SOLUMEDROL QD ALLOPURINOL PO QD NEURONTIN PO BID : TELEMETRY STATUS DCP: FROM HOME PLAN: START RENVELA 2DECHO
[2020-03-06 16:07] VITALS: BP 103/63
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
--- NOTE | 2020-03-06 17:28 | General Progress Note ---
Subjective Date patient seen: Mar 06, 2020 Allergies: Coded Allergies: PENICILLINS (Verified Allergy, Unknown, 02/22/18) Subjective sob better weakness dizziness Objective Last 24 Hour Vital Signs Date Time Temp Pulse Resp B/P (MAP) Pulse Ox O2 Delivery O2 Flow Rate FiO2 03/06/20 16:07 97.2 65 18 103/63 (76) 92 03/06/20 15:17 63 03/06/20 11:53 62 03/06/20 11:51 96.1 63 20 104/65 (78) 91 03/06/20 09:00 Room Air 03/06/20 08:29 68 104/61 03/06/20 08:00 97.0 68 18 104/61 (75) 93 03/06/20 07:24 65 03/06/20 04:00 68 03/06/20 04:00 96.2 69 18 104/63 (77) 93 03/06/20 00:00 71 03/05/20 23:55 96.6 69 18 102/59 (73) 95 03/05/20 21:00 Room Air 03/05/20 20:00 70 03/05/20 20:00 96.6 71 17 111/76 (88) 93 Intake and Output 03/05/20 03/06/20 19:00 07:00 Intake Total 550 ml Balance 550 ml Intake Oral 550 ml # Voids 2 # Bowel Movements 1 Laboratory Tests 03/06/20 06:10: White Blood Count 8.0, Red Blood Count 3.49L, Hemoglobin 10.3L, Hematocrit 32.8L , Mean Corpuscular Volume 94, Mean Corpuscular Hemoglobin 29.5, Mean Corpuscular Hemoglobin Concent 31.4L, Red Cell Distribution Width 16.6H, Platelet Count 123L , Mean Platelet Volume 6.5, Neutrophils (%) (Auto) 69.9, Lymphocytes (%) (Auto) 14.4L, Monocytes (%) (Auto) 15.1H, Eosinophils (%) (Auto) 0.1, Basophils (%) (Auto) 0.5, Sodium Level 135L, Potassium Level 5.0, Chloride Level 101, Carbon Dioxide Level 23, Anion Gap 11, Blood Urea Nitrogen 68H, Creatinine 10.9H, Estimat Glomerular Filtration Rate 5.6, Glucose Level 123H, Calcium Level 8.9, Phosphorus Level 6.1H, Total Bilirubin 0.7, Aspartate Amino Transf (AST/SGOT) 23, Alanine Aminotransferase (ALT/SGPT) 16, Alkaline Phosphatase 95, Total Protein 7.1, Albumin 3.3L, Globulin 3.8, Albumin/Globulin Ratio 0.9L Height (Feet): 5 Height (Inches): 11.00 Weight (Pounds): 181 General Appearance: alert EENT: PERRL/EOMI Neck: non-tender, supple Cardiovascular: regular rhythm Respiratory/Chest: crackles/rales Abdomen: non tender, soft Extremities: non-tender Neurologic: dot compliance specialist II-XII grossly normal Assessment/Plan Assessment/Plan: 1 hypotension better hold bp meds , monitor bp 2 chf on lasix, cardio eval, fluid restriction 3 fluid overload 4 esrd hd depended 5 dizziness stay in bed , hd today dw with cardio and Janes Esqueda MD Mar 06, 2020 17:28
--- NOTE | 2020-03-06 19:25 | NUR ---
NURSE NOTES: Report received from LACHO Crawford. Patient AAO4, alert, and oriented, and able to communicate needs. On room air, saturating well. Breathing unlabored and even. IV site on R IJ #20g, saline lock, flushed and patent. Noted to have a right UA AV shunt for HD. Scheduled to have another session of HD tomorrow. HD nurse, aware. Dr. Vicente made his rounds and saw patient. Aware of patient's 2D echo results, awaiting for new orders. Pt seen ambulatory with walker, but still needs supervision. Skin intact. No complaints of pain or discomfort at this time. Bed in lowest position, brakes engaged and bed alarm on. Call light placed within reach. Will continue to monitor.
--- NOTE | 2020-03-06 19:32 | NUR ---
NURSE HAND-OFF REPORT: Important Events on Shift: Patient Status: Diet: Pending Orders: Pending Results/Labs: Pending MD notification: Latest Vital Signs: Temperature 97.2 , Pulse 65 , B/P 103 /63 , Respiratory Rate 18 , O2 SAT 92 , Room Air, O2 Flow Rate 2.0 . Vital Sign Comment: EKG Rhythm: SR with 1st Degree HB Rhythm change?: N MD Notified?: - MD Response: Latest Colbert Fall Score: 60 Fall Risk: High Risk Safety Measures: Call light Within Reach, Bed Alarm Zone 1, Side Rails Side Rails x2, Bed position Low and Locked. Fall Precautions: Yellow Socks Yellow Gown Door Sign Patient Fall Education Report given to . pt is awake and stable, no stress noted. Endorsed plan of care.
[2020-03-06 20:00] VITALS: BP 131/62
[2020-03-06] MEDS: Atorvastatin 80mg tab ORAL SCH (21:05)
[2020-03-07] VITALS: BP 102/62
[2020-03-07] MEDS: Doxycycline Monohydrate 100mg ORAL SCH ×2 (00:02→11:44)
--- NOTE | 2020-03-07 03:33 | NUR ---
HAND-OFF: Report given to LACHO Mcgee. Patient asleep. Endorsed plan of care HD scheduled today.
--- NOTE | 2020-03-07 03:35 | NUR ---
NURSE NOTES: Report received from LACHO Gutierrez. Patient per report is AAOx4, alert, oriented, able to communicate needs. Is resting in supine position at this time, able to reposition self as needed. On room air, saturating well. Breathing unlabored. IV site on R IJ 20g, saline locked, flushed, patent. Noted to have a right UA AV shunt for HD. Scheduled to have another session of HD tomorrow. HD nurseSim[facility] from [facility] nephro aware. Dr. Vicente saw pt earlier in the evening and is aware of patient's 2D echo results, EF 30%. Pt seen earlier ambulatory with walker, but still needs standby assist. Skin intact. No complaints of pain or discomfort at this time. Bed in lowest position, locked and bed alarm on, side rails x2. Call light placed within reach. Will continue to monitor.
[2020-03-07 04:00] VITALS: BP 101/65
--- NOTE | 2020-03-07 07:49 | NUR ---
NURSE HAND-OFF REPORT: Important Events on Shift: uneventful, had pt from 0340 to 0740, SR 1st AVB Patient Status: [Stable] Diet: [Renal Diet] Pending Results/Labs:[] Latest Vital Signs: Temperature 96.2 , Pulse 68 , B/P 104 /63 , Respiratory Rate 18 , O2 SAT 93 , Room Air, O2 Flow Rate 2.0 . Vital Sign Comment: [] EKG Rhythm: SR with 1st Degree HB Rhythm change?: N MD Notified?: - MD Response: Latest Colbert Fall Score: 45 Fall Risk: High Risk Safety Measures: Call light Within Reach, Bed Alarm Zone 1, Side Rails Side Rails x2, Bed position Low and Locked. Fall Precautions: Yellow Gown Patient Fall Education Report given to Josie MONK
[2020-03-07 08:00] VITALS: BP 140/83
--- NOTE | 2020-03-07 08:06 | NUR ---
NURSE NOTES: Received patient up in bed eating. No SOB or acute distress. IV on right IJ intact. Complaining of generalized weakness and unable to raise arms, Dr Benavidez made aware, orders for CBC, CMP, Mg, PT/OT. Patient ambulated with FWW with supervision. Back to bed. Bed locked in low position. Call light within reach. Will continue plan of care.
--- NOTE | 2020-03-07 08:15 | NUR ---
PAlishaT Note: Pt seen this AM. Pt received in supine position , no c/o pain but reports c/o feeling weak on the RUE/LE. Pt stated " I feel like just had a stroke". Vitals checked and were stable. Pt is alert O x 4. Vitals: stable. MMT : RUE: grossly 3-/5 , fine and motor coordination: impaired . LUE: grossly 4/-5, fine/gross motor coordination: WNL. RLE : grossly 3/5, RLE: grossly 4-/5. Sitting balance: WNL standing balance: Poor. Bed mobilities: MIN a A x 1. Transfers: MIN A X 1. Gait : MIN A X 1 with FWW with slight deviated on the R side. Overall poor fair activity tolerance. Assessment: new onset of weakness on the RUE/LE. RN and MD notified. Recommend neuro consult. Plan: will continue to monitor pt. Addendum: 03/07/20 at 1402 by RICARDA HARO PT Amended: Links added.
[2020-03-07] MEDS: Solu-MEDROL 40mg Inj IVP SCH (08:51)
[2020-03-07] MEDS: Allopurinol 100mg Tab ORAL SCH (08:51)
[2020-03-07] MEDS: Aspirin Baby 81mg ORAL SCH (08:51)
[2020-03-07] MEDS: Docusate 250mg cap ORAL SCH ×3 (08:51→18:00)
[2020-03-07] MEDS: Metoprolol Succinate XL 25mg tab ORAL SCH (08:52)
--- NOTE | 2020-03-07 09:05 | Nephrology Progress Note ---
Assessment/Plan Assessment 1. End-stage renal disease. 2. Hyperkalemia. 3. Hyponatremia. 4. Anemia of chronic kidney disease. 5. Tachycardia. Plan dialysis as schedule start Renvela 800 mg po tid Continue Epogen low k diet continue with current antihypertensive med CT of head ?? Subjective Subjective c/o of right sided weakness denies any dysphagia or slurred speech Objective Objective Last 24 Hour Vital Signs Date Time Temp Pulse Resp B/P (MAP) Pulse Ox O2 Delivery O2 Flow Rate FiO2 03/07/20 08:00 96.4 73 18 140/83 (102) 98 03/07/20 04:00 64 03/07/20 04:00 96.9 64 24 101/65 (77) 94 03/07/20 00:00 96.9 62 20 102/62 (75) 94 03/07/20 00:00 60 03/06/20 21:00 Room Air 03/06/20 20:00 62 03/06/20 20:00 97.0 60 20 131/62 (85) 99 03/06/20 16:07 97.2 65 18 103/63 (76) 92 03/06/20 15:17 63 03/06/20 11:53 62 03/06/20 11:51 96.1 63 20 104/65 (78) 91 Intake and Output 03/06/20 03/07/20 19:00 07:00 Intake Total 555 ml Balance 555 ml Intake Oral 500 ml IV Total 55 ml # Voids 3 3 # Bowel Movements 2 Height (Feet): 5 Height (Inches): 11.00 Weight (Pounds): 181 Objective HEAD AND NECK: No JVP. No LAD. No thyromegaly. Extraocular movement intact. Pupils are reactive to light and accommodation. LUNGS: Clear to auscultation. CARDIAC: Regular rate and rhythm. S1 and S2. No murmur. No rubs. ABDOMEN: Soft, nontender, and nondistended. EXTREMITIES: No edema. No clubbing. No cyanosis. Flora Moon MD Mar 07, 2020 09:05
[2020-03-07] MEDS ORDERED: Omnipaque 350 100ml vial INJ PRN (09:15)
--- NOTE | 2020-03-07 09:53 | Pulmonology Progress Note ---
Subjective Interval Events: Noted RUE weakness this AM Constitutional: Reports: no symptoms HEENT: Repors: no symptoms Respiratory: Reports: no symptoms Cardiovascular: Reports: no symptoms Gastrointestinal/Abdominal: Reports: no symptoms Genitourinary: Reports: no symptoms Allergies: Coded Allergies: PENICILLINS (Verified Allergy, Unknown, 02/22/18) Objective Last 24 Hour Vital Signs Date Time Temp Pulse Resp B/P (MAP) Pulse Ox O2 Delivery O2 Flow Rate FiO2 03/07/20 09:00 Room Air 03/07/20 08:00 96.4 73 18 140/83 (102) 98 03/07/20 04:00 64 03/07/20 04:00 96.9 64 24 101/65 (77) 94 03/07/20 00:00 96.9 62 20 102/62 (75) 94 03/07/20 00:00 60 03/06/20 21:00 Room Air 03/06/20 20:00 62 03/06/20 20:00 97.0 60 20 131/62 (85) 99 03/06/20 16:07 97.2 65 18 103/63 (76) 92 03/06/20 15:17 63 03/06/20 11:53 62 03/06/20 11:51 96.1 63 20 104/65 (78) 91 Intake and Output 03/06/20 03/07/20 19:00 07:00 Intake Total 555 ml Balance 555 ml Intake Oral 500 ml IV Total 55 ml # Voids 3 3 # Bowel Movements 2 General Appearance: no acute distress HEENT: normocephalic Respiratory: chest wall non-tender, lungs clear Cardiovascular: normal peripheral pulses, normal rate Abdomen: normal bowel sounds Extremities: no cyanosis Current Medications Medications (Trade) Dose Ordered Sig/Gallito Route PRN Reason Start Time Stop Time Status Last Admin Dose Admin Acetaminophen (Tylenol) 650 mg Q4H PRN ORAL Mild Pain (Pain Scale 1-3) 03/04/20 11:45 04/03/20 11:44 03/05/20 11:31 Albuterol/ Ipratropium (Albuterol/ Ipratropium) 3 ml Q6H PRN HHN Shortness of Breath 03/04/20 11:45 03/09/20 11:44 Allopurinol (Zyloprim) 100 mg DAILY ORAL 03/05/20 09:00 04/04/20 08:59 03/07/20 08:51 Aspirin (ASA) 81 mg DAILY ORAL 03/06/20 09:00 04/20/20 08:59 03/07/20 08:51 Atorvastatin Calcium (Lipitor) 80 mg BEDTIME ORAL 03/05/20 21:00 06/03/20 20:59 03/06/20 21:05 Ceftriaxone Sodium 1 gm/ Dextrose 55 ml @ 110 mls/hr Q24H IVPB 03/04/20 12:30 03/11/20 12:29 03/06/20 12:05 Docusate Sodium (Colace) 250 mg BID ORAL 03/05/20 22:23 04/04/20 22:22 03/07/20 08:51 Doxycycline Monohydrate (Doxycycline Monohydrate) 100 mg Q12H ORAL 03/04/20 12:30 03/11/20 12:29 03/07/20 00:02 Gabapentin (Neurontin) 300 mg BID ORAL 03/04/20 18:00 04/03/20 17:59 03/07/20 08:51 Iohexol (Omnipaque 350 100ml) 100 ml NOW PRN INJ Radiology Procedure 03/07/20 09:15 03/09/20 09:14 Lactulose (Cephulac) 30 gm BIDPRN PRN ORAL Constipation 03/05/20 22:24 04/04/20 22:23 03/06/20 00:21 Methylprednisolone Sodium Succinate (Solu-MEDROL) 40 mg DAILY IVP 03/05/20 09:00 06/03/20 08:59 03/07/20 08:51 Metoprolol Succinate (Toprol XL) 25 mg DAILY ORAL 03/05/20 15:45 06/03/20 15:44 03/06/20 08:29 Sevelamer Carbonate (Renvela) 800 mg THREE TIMES A DAY ORAL 03/06/20 13:00 06/04/20 12:59 03/07/20 08:51 Tramadol HCl (Ultram) 50 mg Q6H PRN ORAL Severe Breakthru Pain (>7) 03/04/20 13:15 03/11/20 13:14 03/06/20 05:03 Assessment/Plan Assessment/Plan ASSESSMENT AND PLAN: 1. Acute on chronic HFpEF (LVEF of approximately 45%, mild LVH, and moderate pulmonary hypertension with RVSP of approximately 53 mmHg) 2. ESRD on HD 3. Slight elevation of troponin 4. History of CAD. 4. Junctional tachycardia. 5. Moderate pulmonary hypertension. Continue HD and after load reduction Supplemental O2 prn Will follow Noted RUE weakness this AM Will request head CT and labs No need for ICU transfer Fran Green M.D., MD Mar 07, 2020 09:52
--- NOTE | 2020-03-07 10:00 | NUR ---
NURSE NOTES: CT head done as ordered.
--- NOTE | 2020-03-07 10:06 | Diagnostic Imaging Report ---
Indications: Right-sided weakness Technique: Spiral acquisitions obtained through the brain. Angled axial and coronal 5 x 5 mm slices were reconstructed. Total dose length product 1072 mGycm. CTDI vol(s) 53 mGy. Dose reduction achieved using automated exposure control Comparison: None. Findings: There is an area of encephalomalacia involving the inferior posterolateral right parietal lobe, extending slightly into the temporal and occipital lobes. There is a smaller area of encephalomalacia in the high parasagittal right parietal lobe. Old white matter infarct is seen in the right frontal lobe. Old infarcts are also seen in the bilateral basal ganglia. There is age-related enlargement of the ventricles and extra axial CSF spaces. There is periventricular deep white matter low-attenuation, consistent with chronic microvascular ischemic change. No acute intracranial hemorrhage or edema. No mass effect nor midline shift. The mastoids are clear. The sinuses are clear. The visualized orbits are unremarkable. Impression: Chronic and age-related changes Multiple old infarcts Negative for acute intracranial bleed or mass effect The CT scanner at [facility] is accredited by the [employer] and the scans are performed using protocols designed to limit radiation exposure to as low as reasonably achievable to attain images of sufficient resolution adequate for diagnostic evaluation.
[2020-03-07 11:37] VITALS: BP 107/64
[2020-03-07] MEDS: cefTRIAXone 1 GM in D5W 55 ML IVPB SCH (11:43)
--- NOTE | 2020-03-07 15:41 | General Progress Note ---
Subjective Date patient seen: Mar 07, 2020 Allergies: Coded Allergies: PENICILLINS (Verified Allergy, Unknown, 02/22/18) Subjective c/o lt side weakness sob better Objective Last 24 Hour Vital Signs Date Time Temp Pulse Resp B/P (MAP) Pulse Ox O2 Delivery O2 Flow Rate FiO2 03/07/20 12:00 64 03/07/20 11:37 96.4 66 20 107/64 (78) 92 03/07/20 09:00 Room Air 03/07/20 08:00 76 03/07/20 08:00 96.4 73 18 140/83 (102) 98 03/07/20 04:00 64 03/07/20 04:00 96.9 64 24 101/65 (77) 94 03/07/20 00:00 96.9 62 20 102/62 (75) 94 03/07/20 00:00 60 03/06/20 21:00 Room Air 03/06/20 20:00 62 03/06/20 20:00 97.0 60 20 131/62 (85) 99 03/06/20 16:07 97.2 65 18 103/63 (76) 92 Intake and Output 03/06/20 03/07/20 19:00 07:00 Intake Total 555 ml Balance 555 ml Intake Oral 500 ml IV Total 55 ml # Voids 3 3 # Bowel Movements 2 Height (Feet): 5 Height (Inches): 11.00 Weight (Pounds): 181 General Appearance: alert EENT: PERRL/EOMI Neck: supple Cardiovascular: regular rhythm Respiratory/Chest: crackles/rales Abdomen: non tender, soft Extremities: non-tender Edema: trace edema Neurologic: oriented x 3, other - lt side weakness Skin: warm/dry Assessment/Plan Assessment/Plan: 1 cva with lt side hemiparesis neuro consult 2hypotension better hold bp meds , monitor bp 3chf on lasix, cardio eval, fluid restriction 4 fluid overload 5esrd hd depended 6dizziness stay in bed , hd neuro consult cnt anticoagulation and pt/ot Janes Benavidez MD Mar 07, 2020 15:41
[2020-03-07 16:00] VITALS: BP 101/60
[2020-03-07 19:17] LABS: HEMATOCRIT 32.3 % (42.0-52.0); HEMOGLOBIN 10.3 G/DL (14.2-18.0); MEAN CORPUSCULAR VOLUME 95 FL (80-99); PLATELET COUNT 132 K/UL (150-450); RED BLOOD COUNT 3.42 M/UL (4.70-6.10); RED CELL DISTRIBUTION WIDTH 16.9 % (11.6-14.8); WHITE BLOOD COUNT 7.6 K/UL (4.8-10.8)
[2020-03-07 19:27] LABS: ALBUMIN 2.9 G/DL (3.4-5.0); BILIRUBIN,TOTAL 0.4 MG/DL (0.2-1.0); CALCIUM 7.8 MG/DL (8.5-10.1); CREATININE 11.7 MG/DL (0.55-1.30); POTASSIUM 5.1 MMOL/L (3.5-5.1)
--- NOTE | 2020-03-07 19:35 | NUR ---
NURSE NOTES: Received pt and report from LACHO Galindo. Observed pt resting in bed and HD nurse at bedside. Pt is A/Ox4. school lunch monitor is in placed; pt is SR w/1st degree HB. IV site intact, asymptomatic, and patent. Pt has an AV shunt on STEFANIE; currently in use. Bed is in the lowest position and locked. Call light and bedside table is within reach. No signs/symptoms of acute distress noted. Will continue plan or care.
--- NOTE | 2020-03-07 19:36 | NUR ---
NURSE HAND-OFF REPORT: Important Events on Shift: ongoing HD Patient Status: asleep Diet: renal Pending Orders: Pending Results/Labs: Pending MD notification: Latest Vital Signs: Temperature 97.9 , Pulse 68 , B/P 101 /60 , Respiratory Rate 18 , O2 SAT 93 , Room Air, O2 Flow Rate 2.0 . Vital Sign Comment: EKG Rhythm: SR with 1st Degree HB Rhythm change?: N MD Notified?: - MD Response: Latest Colbert Fall Score: 60 Fall Risk: High Risk Safety Measures: Call light Within Reach, Bed Alarm Zone 1, Side Rails Side Rails x2, Bed position Low and Locked. Fall Precautions: Yellow Socks Yellow Gown Door Sign Patient Fall Education Report given to Kourtney MONK.
[2020-03-07 20:00] VITALS: BP 121/66
--- NOTE | 2020-03-07 20:43 | NUR ---
NURSE NOTES: Notified Dr. Vicente that pt is sustaining Bigeminy PVCs. Pt is asymptomatic. Currently receiving HD. Awaiting call back.
[2020-03-07] MEDS: Atorvastatin 80mg tab ORAL SCH (20:57)
--- NOTE | 2020-03-07 21:08 | NUR ---
NURSE NOTES: Per Dr. Vicente, continue treatment. No new orders.
--- NOTE | 2020-03-07 21:35 | Cardiology Progress Note ---
Assessment/Plan Assessment/Plan 1. Acute on chronic HFrEF, there is a drop of LVEF from 45% to 30%. Continue guideline directed medical therapy. 2. Slight elevation of troponin I level could be troponin leak associated with end-stage renal disease versus type 2 [id number] myocardial infarction given history of coronary artery disease. 3. History of CAD, s/p failed PCI. 4. Junctional tachycardia, which is paroxysmal. We will consider beta-blockers. 5. Moderate pulmonary hypertension, could be secondary to end-stage renal disease or left diastolic heart failure. Subjective Subjective Sinus rhythm at rate of 75. Objective Last 24 Hour Vital Signs Date Time Temp Pulse Resp B/P (MAP) Pulse Ox O2 Delivery O2 Flow Rate FiO2 03/07/20 20:00 97.5 75 19 121/66 (84) 94 03/07/20 16:00 97.9 67 18 101/60 (74) 93 03/07/20 16:00 68 03/07/20 12:00 64 03/07/20 11:37 96.4 66 20 107/64 (78) 92 03/07/20 09:00 Room Air 03/07/20 08:00 76 03/07/20 08:00 96.4 73 18 140/83 (102) 98 03/07/20 04:00 64 03/07/20 04:00 96.9 64 24 101/65 (77) 94 03/07/20 00:00 96.9 62 20 102/62 (75) 94 03/07/20 00:00 60 Intake and Output 03/06/20 03/07/20 19:00 07:00 Intake Total 555 ml Balance 555 ml Intake Oral 500 ml IV Total 55 ml # Voids 3 3 # Bowel Movements 2 2D Echo: LVEF 30%, Global HK, RVSP 58, AZUL, Grade II LVDD (pseudo-normal physio) Laboratory Tests Test 03/07/20 18:30 03/07/20 19:00 Sodium Level 132 MMOL/L (136-145) L Potassium Level 5.1 MMOL/L (3.5-5.1) Chloride Level 99 MMOL/L (98-107) Carbon Dioxide Level 19 MMOL/L (21-32) L Anion Gap 14 mmol/L (5-15) Blood Urea Nitrogen 87 mg/dL (7-18) H Creatinine 11.7 MG/DL (0.55-1.30) H Estimat Glomerular Filtration Rate 5.1 mL/min (>60) Glucose Level 124 MG/DL (74-106) H Calcium Level 7.8 MG/DL (8.5-10.1) L Magnesium Level 2.1 MG/DL (1.8-2.4) Total Bilirubin 0.4 MG/DL (0.2-1.0) Aspartate Amino Transf (AST/SGOT) 19 U/L (15-37) Alanine Aminotransferase (ALT/SGPT) 9 U/L (12-78) L Alkaline Phosphatase 95 U/L (46-116) Total Protein 5.9 G/DL (6.4-8.2) L Albumin 2.9 G/DL (3.4-5.0) L Globulin 3.0 g/dL Albumin/Globulin Ratio 1.0 (1.0-2.7) White Blood Count 7.6 K/UL (4.8-10.8) Red Blood Count 3.42 M/UL (4.70-6.10) L Hemoglobin 10.3 G/DL (14.2-18.0) L Hematocrit 32.3 % (42.0-52.0) L Mean Corpuscular Volume 95 FL (80-99) Mean Corpuscular Hemoglobin 30.0 PG (27.0-31.0) Mean Corpuscular Hemoglobin Concent 31.7 G/DL (32.0-36.0) L Red Cell Distribution Width 16.9 % (11.6-14.8) H Platelet Count 132 K/UL (150-450) L Mean Platelet Volume 7.3 FL (6.5-10.1) Neutrophils (%) (Auto) % (45.0-75.0) Lymphocytes (%) (Auto) % (20.0-45.0) Monocytes (%) (Auto) % (1.0-10.0) Eosinophils (%) (Auto) % (0.0-3.0) Basophils (%) (Auto) % (0.0-2.0) Differential Total Cells Counted 100 Neutrophils % (Manual) 83 % (45-75) H Lymphocytes % (Manual) 9 % (20-45) L Monocytes % (Manual) 8 % (1-10) Eosinophils % (Manual) 0 % (0-3) Basophils % (Manual) 0 % (0-2) Band Neutrophils 0 % (0-8) Platelet Estimate Decreased L Platelet Morphology Normal Hypochromasia 1+ Anisocytosis 1+ Objective HEENT: Atraumatic, normocephalic. Anicteric. Pupils are equal, round, and reactive to light and accommodation. Extraocular muscles intact. NECK: JVP less than 5 cm. No carotid bruit. Carotid upstroke is 2+ bilaterally. CARDIOVASCULAR: Normal S1, S2. Regular rate and rhythm. No murmurs, gallops, or rubs. PMI is at fourth intercostal space and midclavicular line. LUNGS: Diminished breath sounds throughout, somewhat diminished mostly in the bases of both lungs with increased dullness. ABDOMEN: Soft, nontender, and nondistended. No hepatosplenomegaly. Positive bowel sounds. EXTREMITIES: No evidence of edema, clubbing, or cyanosis. Chris Vicente MD Mar 07, 2020 21:35
[2020-03-07] MEDS: Carvedilol 6.25mg Tab ORAL SCH (22:07)
--- NOTE | 2020-03-07 23:54 | NUR ---
NURSE NOTES: Titrated pt down to 2LPM on NC. Pt's current O2 saturation is 94%. Addendum: 03/07/20 at 2355 by Gracie Licona Mai, RN WRONG PT!!!
[2020-03-08] VITALS: BP 112/65
[2020-03-08] MEDS: Doxycycline Monohydrate 100mg ORAL SCH ×2 (00:50→12:13)
--- NOTE | 2020-03-08 01:15 | NUR ---
NURSE NOTES: Observed pt asleep in bed. No signs/symptoms of acute/respiratory distress noted. Will continue plan of care.
[2020-03-08 04:00] VITALS: BP 112/52
--- NOTE | 2020-03-08 07:30 | NUR ---
NURSE NOTES: Received pt from RN SANDRA, Pt is awake and alert, pt is in RA, no SOB or acute respiratory distress noted. pt has intact iv access RIJ 20G SL. pt is on continues heart monitoring. pt is eating breakfast by observation. no complain of pain at this moment. All needs attended, bed is locked and is in the lowest position, call light within easy reach. will continue to monitor.
--- NOTE | 2020-03-08 07:33 | NUR ---
NURSE HAND-OFF REPORT: Important Events on Shift: Pt received HD; 3L removed. Notified Dr. Vicente regarding Bigeminy PVCs; no new orders given. Patient Status: Stable Diet: Renal Diet Pending Orders: Venous duplex Pending Results/Labs: AM Labs Pending MD notification: N Latest Vital Signs: Temperature 98.1 , Pulse 85 , B/P 112 /52 , Respiratory Rate 20 , O2 SAT 100 , Room Air, O2 Flow Rate 2.0 . EKG Rhythm: SR w/1st Degree HB Rhythm change?: N Latest Colbert Fall Score: 60 Fall Risk: High Risk Safety Measures: Call light Within Reach, Bed Alarm Zone 1, Side Rails Side Rails x2, Bed position Low and Locked. Fall Precautions: Yellow Socks Yellow Gown Door Sign Patient Fall Education Report given to LACHO Crawford. Addendum: 03/08/20 at 0742 by Gracie Licona Mai, RN Incorrect input No venous duplex ordered
[2020-03-08 07:49] VITALS: BP 108/53
[2020-03-08] MEDS: Docusate 250mg cap ORAL SCH ×2 (09:00→17:19)
[2020-03-08] MEDS: Solu-MEDROL 40mg Inj IVP SCH (09:03)
[2020-03-08] MEDS: Carvedilol 6.25mg Tab ORAL SCH ×2 (09:03→20:38)
[2020-03-08] MEDS: Losartan 50mg tab ORAL SCH (09:03)
[2020-03-08] MEDS: Aspirin Baby 81mg ORAL SCH (09:03)
[2020-03-08] MEDS: Allopurinol 100mg Tab ORAL SCH (09:03)
--- NOTE | 2020-03-08 09:15 | General Progress Note ---
Subjective Allergies: Coded Allergies: PENICILLINS (Verified Allergy, Unknown, 02/22/18) Subjective c/o lt side weakness improving sob better Objective Last 24 Hour Vital Signs Date Time Temp Pulse Resp B/P (MAP) Pulse Ox O2 Delivery O2 Flow Rate FiO2 03/08/20 09:03 108/53 03/08/20 09:03 61 108/53 03/08/20 07:49 97.7 61 20 108/53 (71) 96 03/08/20 04:00 85 03/08/20 04:00 98.1 85 20 112/52 (72) 100 03/08/20 00:00 92 03/08/20 00:00 97.9 92 20 112/65 (81) 98 03/07/20 22:07 85 126/65 03/07/20 21:00 Room Air 03/07/20 20:00 65 03/07/20 20:00 97.5 75 19 121/66 (84) 94 03/07/20 19:45 83 03/07/20 16:00 97.9 67 18 101/60 (74) 93 03/07/20 16:00 68 03/07/20 12:00 64 03/07/20 11:37 96.4 66 20 107/64 (78) 92 Intake and Output 03/07/20 03/08/20 19:00 07:00 Intake Total 500 ml 260 ml Balance 500 ml 260 ml Intake Oral 500 ml 260 ml # Voids 3 # Bowel Movements 1 Laboratory Tests 03/07/20 18:30: Sodium Level 132L, Potassium Level 5.1, Chloride Level 99, Carbon Dioxide Level 19L, Anion Gap 14, Blood Urea Nitrogen 87H, Creatinine 11.7H, Estimat Glomerular Filtration Rate 5.1, Glucose Level 124H, Calcium Level 7.8L, Magnesium Level 2.1, Total Bilirubin 0.4, Aspartate Amino Transf (AST/SGOT) 19, Alanine Aminotransferase (ALT/SGPT) 9L, Alkaline Phosphatase 95, Total Protein 5.9L, Albumin 2.9L, Globulin 3.0, Albumin/Globulin Ratio 1.0 03/07/20 19:00: White Blood Count 7.6, Red Blood Count 3.42L, Hemoglobin 10.3L, Hematocrit 32.3L , Mean Corpuscular Volume 95, Mean Corpuscular Hemoglobin 30.0, Mean Corpuscular Hemoglobin Concent 31.7L, Red Cell Distribution Width 16.9H, Platelet Count 132L , Mean Platelet Volume 7.3, Neutrophils (%) (Auto) , Lymphocytes (%) (Auto) , Monocytes (%) (Auto) , Eosinophils (%) (Auto) , Basophils (%) (Auto) , Differential Total Cells Counted 100, Neutrophils % (Manual) 83H, Lymphocytes % (Manual) 9L, Monocytes % (Manual) 8, Eosinophils % (Manual) 0, Basophils % (Manual) 0, Band Neutrophils 0, Platelet Estimate DecreasedL, Platelet Morphology Normal, Hypochromasia 1+, Anisocytosis 1+ Height (Feet): 5 Height (Inches): 11.00 Weight (Pounds): 181 General Appearance: alert EENT: PERRL/EOMI Neck: supple Cardiovascular: normal rate Respiratory/Chest: lungs clear Abdomen: soft, no organomegaly Extremities: non-tender 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
--- NOTE | 2020-03-08 09:41 | NUR ---
RD ASSESSMENT & RECOMMENDATIONS SEE CARE ACTIVITY FOR COMPLETE ASSESSMENT DAILY ESTIMATED NEEDS: Needs based on ESRD on HD 79.4kg abw 30-35 kcals/kg 6725-3480 total kcals 1.2-1.8 g protein/kg 95-143 g total protein Fluid per MD on HD NUTRITION DIAGNOSIS: Increased kcal and pro needs r/t renal dysfunction as evidenced by pt w/ ESRD on HD. CURRENT DIET: renal PO DIET RECOMMENDATIONS: Maintain Renal diet/ texture as [id number] ADDITIONAL RECOMMENDATIONS: 1) Rec bedside BG for hypoglycemic monitoring. 2) Maintain daily calibrated bed scale wts 3) Add Nepro 1 tetra qdaily 4) Add high pro snacks in b/w meals
--- NOTE | 2020-03-08 10:17 | Pulmonology Progress Note ---
Subjective Interval Events: None new Constitutional: Reports: no symptoms HEENT: Repors: no symptoms Respiratory: Reports: no symptoms Cardiovascular: Reports: no symptoms Gastrointestinal/Abdominal: Reports: no symptoms Genitourinary: Reports: no symptoms Allergies: Coded Allergies: PENICILLINS (Verified Allergy, Unknown, 02/22/18) Objective Last 24 Hour Vital Signs Date Time Temp Pulse Resp B/P (MAP) Pulse Ox O2 Delivery O2 Flow Rate FiO2 03/08/20 09:03 108/53 03/08/20 09:03 61 108/53 03/08/20 07:49 97.7 61 20 108/53 (71) 96 03/08/20 04:00 85 03/08/20 04:00 98.1 85 20 112/52 (72) 100 03/08/20 00:00 92 03/08/20 00:00 97.9 92 20 112/65 (81) 98 03/07/20 22:07 85 126/65 03/07/20 21:00 Room Air 03/07/20 20:00 65 03/07/20 20:00 97.5 75 19 121/66 (84) 94 03/07/20 19:45 83 03/07/20 16:00 97.9 67 18 101/60 (74) 93 03/07/20 16:00 68 03/07/20 12:00 64 03/07/20 11:37 96.4 66 20 107/64 (78) 92 Intake and Output 03/07/20 03/08/20 19:00 07:00 Intake Total 500 ml 260 ml Balance 500 ml 260 ml Intake Oral 500 ml 260 ml # Voids 3 # Bowel Movements 1 General Appearance: no acute distress HEENT: normocephalic Respiratory: chest wall non-tender, lungs clear Cardiovascular: normal peripheral pulses, normal rate Abdomen: normal bowel sounds Extremities: no cyanosis Laboratory Tests 03/07/20 18:30: Sodium Level 132L, Potassium Level 5.1, Chloride Level 99, Carbon Dioxide Level 19L, Anion Gap 14, Blood Urea Nitrogen 87H, Creatinine 11.7H, Estimat Glomerular Filtration Rate 5.1, Glucose Level 124H, Calcium Level 7.8L, Magnesium Level 2.1, Total Bilirubin 0.4, Aspartate Amino Transf (AST/SGOT) 19, Alanine Arroyo otransferase (ALT/SGPT) 9L, Alkaline Phosphatase 95, Total Protein 5.9L, Albumin 2.9L, Globulin 3.0, Albumin/Globulin Ratio 1.0 03/07/20 19:00: White Blood Count 7.6, Red Blood Count 3.42L, Hemoglobin 10.3L, Hematocrit 32.3L , Mean Corpuscular Volume 95, Mean Corpuscular Hemoglobin 30.0, Mean Corpuscular Hemoglobin Concent 31.7L, Red Cell Distribution Width 16.9H, Platelet Count 132L , Mean Platelet Volume 7.3, Neutrophils (%) (Auto) , Lymphocytes (%) (Auto) , Monocytes (%) (Auto) , Eosinophils (%) (Auto) , Basophils (%) (Auto) , Differential Total Cells Counted 100, Neutrophils % (Manual) 83H, Lymphocytes % (Manual) 9L, Monocytes % (Manual) 8, Eosinophils % (Manual) 0, Basophils % (Manual) 0, Band Neutrophils 0, Platelet Estimate DecreasedL, Platelet M orphology Normal, Hypochromasia 1+, Anisocytosis 1+ Current Medications Medications (Trade) Dose Ordered Sig/Gallito Route PRN Reason Start Time Stop Time Status Last Admin Dose Admin Acetaminophen (Tylenol) 650 mg Q4H PRN ORAL Mild Pain (Pain Scale 1-3) 03/04/20 11:45 04/03/20 11:44 03/05/20 11:31 Albuterol/ Ipratropium (Albuterol/ Ipratropium) 3 ml Q6H PRN HHN Shortness of Breath 03/04/20 11:45 03/09/20 11:44 Allopurinol (Zyloprim) 100 mg DAILY ORAL 03/05/20 09:00 04/04/20 08:59 03/08/20 09:03 Aspirin (ASA) 81 mg DAILY ORAL 03/06/20 09:00 04/20/20 08:59 03/08/20 09:03 Atorvastatin Calcium (Lipitor) 80 mg BEDTIME ORAL 03/05/20 21:00 06/03/20 20:59 03/06/20 21:05 Carvedilol (Coreg) 6.25 mg EVERY 12 HOURS ORAL 03/07/20 21:45 04/06/20 21:44 03/08/20 09:03 Ceftriaxone Sodium 1 gm/ Dextrose 55 ml @ 110 mls/hr Q24H IVPB 03/04/20 12:30 03/11/20 12:29 03/07/20 11:43 Docusate Sodium (Colace) 250 mg BID ORAL 03/05/20 22:23 04/04/20 22:22 03/06/20 08:29 Doxycycline Monohydrate (Doxycycline Monohydrate) 100 mg Q12H ORAL 03/04/20 12:30 03/11/20 12:29 03/08/20 00:50 Gabapentin (Neurontin) 300 mg BID ORAL 03/04/20 18:00 04/03/20 17:59 03/08/20 09:03 Iohexol (Omnipaque 350 100ml) 100 ml NOW PRN INJ Radiology Procedure 03/07/20 09:15 03/09/20 09:14 Lactulose (Cephulac) 30 gm BIDPRN PRN ORAL Constipation 03/05/20 22:24 04/04/20 22:23 03/06/20 00:21 Losartan Potassium (Cozaar) 50 mg DAILY ORAL 03/08/20 09:00 04/07/20 08:59 03/08/20 09:03 Methylprednisolone Sodium Succinate (Solu-MEDROL) 40 mg DAILY IVP 03/05/20 09:00 06/03/20 08:59 03/08/20 09:03 Sevelamer Carbonate (Renvela) 800 mg THREE TIMES A DAY ORAL 03/06/20 13:00 06/04/20 12:59 03/08/20 09:03 Tramadol HCl (Ultram) 50 mg Q6H PRN ORAL Severe Breakthru Pain (>7) 03/04/20 13:15 03/11/20 13:14 03/06/20 05:03 Assessment/Plan Assessment/Plan ASSESSMENT AND PLAN: 1. Acute on chronic HFpEF (LVEF of approximately 45%, mild LVH, and moderate pulmonary hypertension with RVSP of approximately 53 mmHg) 2. ESRD on HD 3. Slight elevation of troponin 4. History of CAD. 4. Junctional tachycardia. 5. Moderate pulmonary hypertension. Continue HD and after load reduction Supplemental O2 prn Will follow Noted RUE weakness yesterday CT head no acute changes Has previous CVA's and encephalomalacia Fran Green M.D., MD Mar 08, 2020 10:17
--- NOTE | 2020-03-08 10:35 | Nephrology Progress Note ---
Assessment/Plan Assessment 1. End-stage renal disease. 2. Hyperkalemia. 3. Hyponatremia. 4. Anemia of chronic kidney disease. 5. Tachycardia. Plan dialysis as schedule Continue Epogen low k diet continue with current antihypertensive med CT of head ?? Subjective Subjective no complaints Objective Objective Last 24 Hour Vital Signs Date Time Temp Pulse Resp B/P (MAP) Pulse Ox O2 Delivery O2 Flow Rate FiO2 03/08/20 09:03 108/53 03/08/20 09:03 61 108/53 03/08/20 07:49 97.7 61 20 108/53 (71) 96 03/08/20 04:00 85 03/08/20 04:00 98.1 85 20 112/52 (72) 100 03/08/20 00:00 92 03/08/20 00:00 97.9 92 20 112/65 (81) 98 03/07/20 22:07 85 126/65 03/07/20 21:00 Room Air 03/07/20 20:00 65 03/07/20 20:00 97.5 75 19 121/66 (84) 94 03/07/20 19:45 83 03/07/20 16:00 97.9 67 18 101/60 (74) 93 03/07/20 16:00 68 03/07/20 12:00 64 03/07/20 11:37 96.4 66 20 107/64 (78) 92 Intake and Output 03/07/20 03/08/20 19:00 07:00 Intake Total 500 ml 260 ml Balance 500 ml 260 ml Intake Oral 500 ml 260 ml # Voids 3 # Bowel Movements 1 Laboratory Tests 03/07/20 18:30: Sodium Level 132L, Potassium Level 5.1, Chloride Level 99, Carbon Dioxide Level 19L, Anion Gap 14, Blood Urea Nitrogen 87H, Creatinine 11.7H, Estimat Glomerular Filtration Rate 5.1, Glucose Level 124H, Calcium Level 7.8L, Magnesium Level 2.1, Total Bilirubin 0.4, Aspartate Amino Transf (AST/SGOT) 19, Alanine Aminotransferase (ALT/SGPT) 9L, Alkaline Phosphatase 95, Total Protein 5.9L, Albumin 2.9L, Globulin 3.0, Albumin/Globulin Ratio 1.0 03/07/20 19:00: White Blood Count 7.6, Red Blood Count 3.42L, Hemoglobin 10.3L, Hematocrit 32.3L , Mean Corpuscular Volume 95, Mean Corpuscular Hemoglobin 30.0, Mean Corpuscular Hemoglobin Concent 31.7L, Red Cell Distribution Width 16.9H, Platelet Count 132L , Mean Platelet Volume 7.3, Neutrophils (%) (Auto) , Lymphocytes (%) (Auto) , Monocytes (%) (Auto) , Eosinophils (%) (Auto) , Basophils (%) (Auto) , Differential Total Cells Counted 100, Neutrophils % (Manual) 83H, Lymphocytes % (Manual) 9L, Monocytes % (Manual) 8, Eosinophils % (Manual) 0, Basophils % (Manual) 0, Band Neutrophils 0, Platelet Estimate DecreasedL, Platelet Morphology Normal, Hypochromasia 1+, Anisocytosis 1+ Height (Feet): 5 Height (Inches): 11.00 Weight (Pounds): 181 Objective HEAD AND NECK: No JVP. No LAD. No thyromegaly. Extraocular movement intact. Pupils are reactive to light and accommodation. LUNGS: Clear to auscultation. CARDIAC: Regular rate and rhythm. S1 and S2. No murmur. No rubs. ABDOMEN: Soft, nontender, and nondistended. EXTREMITIES: No edema. No clubbing. No cyanosis. Flora Moon MD Mar 08, 2020 10:35
[2020-03-08 12:00] VITALS: BP 102/89
[2020-03-08] MEDS: cefTRIAXone 1 GM in D5W 55 ML IVPB SCH (12:14)
--- NOTE | 2020-03-08 12:22 | NUR ---
CASE MANAGEMENT:REVIEW 03/08/20 SI: CHF. TROPONIN LEAK. ESRD/HD JUNCTIONAL TACHYCARDIA. *RT SIDED WEAKNESS 98.1 78 20 102/89 95% ON RA IS: IV SOLUMEDROL QD IV ROCEPHIN Q24 DOXYCYCLINE PO Q12 COZAAR PO QD COREG PO Q12 ASA PO QD ALLOPURINOL PO QD : TELEMETRY STATUS DCP: FROM HOME BUT ARU RECOMMENDED PLAN: REFER TO [facility] ~ AMBULATING 25FT
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
[2020-03-08 16:00] VITALS: BP 120/63
--- NOTE | 2020-03-08 16:16 | NUR ---
*-*DISCHARGE PLANNING*-* PATIENT HAS BEEN REFERRED TO: [facility] P: [phone]
--- NOTE | 2020-03-08 19:19 | NUR ---
NURSE HAND-OFF REPORT: Important Events on Shift: Patient Status: Diet: Pending Orders: Pending Results/Labs: Pending MD notification: Latest Vital Signs: Temperature 98.7 , Pulse 91 , B/P 120 /63 , Respiratory Rate 19 , O2 SAT 100 , Room Air, O2 Flow Rate 2.0 . Vital Sign Comment: EKG Rhythm: SR w/1st Degree AVB Rhythm change?: N MD Notified?: Loy Vicente MD Response: No New Orders Received Latest Colbert Fall Score: 60 Fall Risk: High Risk Safety Measures: Call light Within Reach, Bed Alarm Zone 1, Side Rails Side Rails x2, Bed position Low and Locked. Fall Precautions: Yellow Socks Yellow Gown Door Sign Patient Fall Education Report given to . Pt is sleeping and stable, no stress noted. Endorsed plan of care.
--- NOTE | 2020-03-08 19:20 | NUR ---
NURSE NOTES: Received pt and report from LACHO Crawford. Observed pt resting in bed with both eyes closed; arousable to voice. Pt is A/Ox4. court monitor is in placed; pt is SR w/1st degree HB. IV site intact, asymptomatic, and patent. Pt has an AV shunt on STEFANIE; no bleeding noted. Bed is in the lowest position and locked. Call light and bedside table is within reach. No signs/symptoms of acute distress noted. Will continue plan or care.
[2020-03-08 20:00] VITALS: BP 99/54
[2020-03-08] MEDS: Atorvastatin 80mg tab ORAL SCH (20:38)
[2020-03-09] VITALS: BP 105/60
[2020-03-09] MEDS: Doxycycline Monohydrate 100mg ORAL SCH ×2 (00:08→13:21)
--- NOTE | 2020-03-09 01:33 | NUR ---
NURSE NOTES: Observed pt asleep in bed. No signs/symptoms of acute distress noted.
[2020-03-09 04:00] VITALS: BP 109/55
[2020-03-09] MEDS: traMADol 50mg tab ORAL PRN (05:54)
--- NOTE | 2020-03-09 07:28 | NUR ---
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 Patient Status: Stable Diet: Renal Diet Pending Orders: HD Pending Results/Labs: N Pending notification: N Latest Vital Signs: Temperature 97.9 , Pulse 76 , B/P 109 /55 , Respiratory Rate 20 , O2 SAT 94 , Room Air, O2 Flow Rate 2.0 . EKG Rhythm: SR w/1st Degree AVB Rhythm change?: N MD Notified?: Loy Vicente MD Response: No New Orders Received Latest Colbert Fall Score: 60 Fall Risk: High Risk Safety Measures: Call light Within Reach, Bed Alarm Zone 1, Side Rails Side Rails x2, Bed position Low and Locked. Fall Precautions: Yellow Socks Yellow Gown Door Sign Patient Fall Education Report given to LACHO Galindo.
--- NOTE | 2020-03-09 07:29 | NUR ---
NURSE NOTES: Received patient in bed awake. No SOB or acute distress. IV line intact. HOB elevated. Bed locked in low, alarm on. Call light within reach. Instructed to call for assistance. Will continue plan of care.
[2020-03-09 08:00] VITALS: BP 91/50
[2020-03-09] MEDS: Losartan 50mg tab ORAL SCH (09:00)
[2020-03-09] MEDS: Docusate 250mg cap ORAL SCH ×2 (09:00→18:00)
[2020-03-09] MEDS: Carvedilol 6.25mg Tab ORAL SCH (09:00)
--- NOTE | 2020-03-09 09:28 | General Progress Note ---
Subjective Allergies: Coded Allergies: PENICILLINS (Verified Allergy, Unknown, 02/22/18) Subjective c/o lt side weakness improving hd today aru eval Objective Last 24 Hour Vital Signs Date Time Temp Pulse Resp B/P (MAP) Pulse Ox O2 Delivery O2 Flow Rate FiO2 03/09/20 08:00 96.3 72 18 91/50 (64) 93 03/09/20 04:00 71 03/09/20 04:00 97.9 76 20 109/55 (73) 94 03/09/20 00:00 71 03/09/20 00:00 98.1 75 20 105/60 (75) 96 03/08/20 21:00 Room Air 03/08/20 20:38 73 99/54 03/08/20 20:00 98.4 73 20 99/54 (69) 96 03/08/20 20:00 70 03/08/20 16:00 98.7 91 19 120/63 (82) 100 03/08/20 15:42 71 03/08/20 12:00 98.1 78 20 102/89 (93) 95 03/08/20 11:52 72 Intake and Output 03/08/20 03/09/20 19:00 07:00 Intake Total 195 ml 200 ml Balance 195 ml 200 ml Intake Oral 140 ml 200 ml IV Total 55 ml # Voids 3 Height (Feet): 5 Height (Inches): 11.00 Weight (Pounds): 181 General Appearance: alert EENT: PERRL/EOMI Neck: supple Cardiovascular: regular rhythm Respiratory/Chest: lungs clear Abdomen: non tender, soft Extremities: non-tender Assessment/Plan Assessment/Plan: 1 cva/tia neuro consult 3chf on lasix, cardio eval, fluid restriction 4 fluid overload 5esrd hd depended neuro consult abraham valverdeu eval cnt anticoagulation and pt/ot Janes Benavidez MD Mar 09, 2020 09:28
[2020-03-09] MEDS: Aspirin Baby 81mg ORAL SCH (09:43)
[2020-03-09] MEDS: Solu-MEDROL 40mg Inj IVP SCH ×2 (09:43→11:38)
[2020-03-09] MEDS: Allopurinol 100mg Tab ORAL SCH (09:43)
--- NOTE | 2020-03-09 10:25 | Pulmonology Progress Note ---
Subjective Interval Events: None new Constitutional: Reports: no symptoms HEENT: Repors: no symptoms Respiratory: Reports: no symptoms Cardiovascular: Reports: no symptoms Gastrointestinal/Abdominal: Reports: no symptoms Genitourinary: Reports: no symptoms Allergies: Coded Allergies: PENICILLINS (Verified Allergy, Unknown, 02/22/18) Objective Last 24 Hour Vital Signs Date Time Temp Pulse Resp B/P (MAP) Pulse Ox O2 Delivery O2 Flow Rate FiO2 03/09/20 08:00 96.3 72 18 91/50 (64) 93 03/09/20 04:00 71 03/09/20 04:00 97.9 76 20 109/55 (73) 94 03/09/20 00:00 71 03/09/20 00:00 98.1 75 20 105/60 (75) 96 03/08/20 21:00 Room Air 03/08/20 20:38 73 99/54 03/08/20 20:00 98.4 73 20 99/54 (69) 96 03/08/20 20:00 70 03/08/20 16:00 98.7 91 19 120/63 (82) 100 03/08/20 15:42 71 03/08/20 12:00 98.1 78 20 102/89 (93) 95 03/08/20 11:52 72 Intake and Output 03/08/20 03/09/20 19:00 07:00 Intake Total 195 ml 200 ml Balance 195 ml 200 ml Intake Oral 140 ml 200 ml IV Total 55 ml # Voids 3 General Appearance: no acute distress HEENT: normocephalic Respiratory: chest wall non-tender, lungs clear Cardiovascular: normal peripheral pulses, normal rate Abdomen: normal bowel sounds Extremities: no cyanosis Current Medications Medications (Trade) Dose Ordered Sig/Gallito Route PRN Reason Start Time Stop Time Status Last Admin Dose Admin Acetaminophen (Tylenol) 650 mg Q4H PRN ORAL Mild Pain (Pain Scale 1-3) 03/04/20 11:45 04/03/20 11:44 03/05/20 11:31 Albuterol/ Ipratropium (Albuterol/ Ipratropium) 3 ml Q6H PRN HHN Shortness of Breath 03/04/20 11:45 03/09/20 11:44 Allopurinol (Zyloprim) 100 mg DAILY ORAL 03/05/20 09:00 04/04/20 08:59 03/09/20 09:43 Aspirin (ASA) 81 mg DAILY ORAL 03/06/20 09:00 04/20/20 08:59 03/09/20 09:43 Atorvastatin Calcium (Lipitor) 80 mg BEDTIME ORAL 03/05/20 21:00 06/03/20 20:59 03/08/20 20:38 Carvedilol (Coreg) 6.25 mg EVERY 12 HOURS ORAL 03/07/20 21:45 04/06/20 21:44 03/08/20 09:03 Ceftriaxone Sodium 1 gm/ Dextrose 55 ml @ 110 mls/hr Q24H IVPB 03/04/20 12:30 03/11/20 12:29 03/08/20 12:14 Docusate Sodium (Colace) 250 mg BID ORAL 03/05/20 22:23 04/04/20 22:22 03/06/20 08:29 Doxycycline Monohydrate (Doxycycline Monohydrate) 100 mg Q12H ORAL 03/04/20 12:30 03/11/20 12:29 03/09/20 00:08 Gabapentin (Neurontin) 300 mg BID ORAL 03/04/20 18:00 04/03/20 17:59 03/09/20 09:43 Lactulose (Cephulac) 30 gm BIDPRN PRN ORAL Constipation 03/05/20 22:24 04/04/20 22:23 03/06/20 00:21 Losartan Potassium (Cozaar) 50 mg DAILY ORAL 03/08/20 09:00 04/07/20 08:59 03/08/20 09:03 Methylprednisolone Sodium Succinate (Solu-MEDROL) 40 mg DAILY IVP 03/05/20 09:00 06/03/20 08:59 03/08/20 09:03 Sevelamer Carbonate (Renvela) 800 mg THREE TIMES A DAY ORAL 03/06/20 13:00 06/04/20 12:59 03/09/20 09:43 Tramadol HCl (Ultram) 50 mg Q6H PRN ORAL Severe Breakthru Pain (>7) 03/04/20 13:15 03/11/20 13:14 03/09/20 05:54 Assessment/Plan Assessment/Plan ASSESSMENT AND PLAN: 1. Acute on chronic HFpEF (LVEF of approximately 45%, mild LVH, and moderate pulmonary hypertension with RVSP of approximately 53 mmHg) 2. ESRD on HD 3. Troponin leak 4. History of CAD. 4. Junctional tachycardia. 5. Moderate pulmonary hypertension. Continue HD and after load reduction Supplemental O2 prn Will follow CT head no acute changes Has previous CVA's and encephalomalacia Fran Green M.D., MD Mar 09, 2020 10:25
--- NOTE | 2020-03-09 10:28 | Nephrology Progress Note ---
Assessment/Plan Assessment 1. End-stage renal disease. 2. Hypocalcemia 3. Hyponatremia. 4. Anemia of chronic kidney disease. 5. Tachycardia. Plan dialysis as schedule Continue Epogen low k diet continue with current antihypertensive med CT of head ?? Subjective Constitutional: Reports: no symptoms HEENT: Reports: no symptoms Neurologic/Psychiatric: Reports: no symptoms Subjective feeling ok Objective Objective Last 24 Hour Vital Signs Date Time Temp Pulse Resp B/P (MAP) Pulse Ox O2 Delivery O2 Flow Rate FiO2 03/09/20 08:00 96.3 72 18 91/50 (64) 93 03/09/20 04:00 71 03/09/20 04:00 97.9 76 20 109/55 (73) 94 03/09/20 00:00 71 03/09/20 00:00 98.1 75 20 105/60 (75) 96 03/08/20 21:00 Room Air 03/08/20 20:38 73 99/54 03/08/20 20:00 98.4 73 20 99/54 (69) 96 03/08/20 20:00 70 03/08/20 16:00 98.7 91 19 120/63 (82) 100 03/08/20 15:42 71 03/08/20 12:00 98.1 78 20 102/89 (93) 95 03/08/20 11:52 72 Intake and Output 03/08/20 03/09/20 19:00 07:00 Intake Total 195 ml 200 ml Balance 195 ml 200 ml Intake Oral 140 ml 200 ml IV Total 55 ml # Voids 3 Height (Feet): 5 Height (Inches): 11.00 Weight (Pounds): 181 Objective HEAD AND NECK: No JVP. No LAD. No thyromegaly. Extraocular movement intact. Pupils are reactive to light and accommodation. LUNGS: Clear to auscultation. CARDIAC: Regular rate and rhythm. S1 and S2. No murmur. No rubs. ABDOMEN: Soft, nontender, and nondistended. EXTREMITIES: No edema. No clubbing. No cyanosis. Flora Moon MD Mar 09, 2020 10:28
--- NOTE | 2020-03-09 11:00 | NUR ---
NURSE NOTES: IV line reinserted to left hand g24.
--- NOTE | 2020-03-09 11:34 | NUR ---
DISCHARGE PLANNING CALLED AND SPOKE WITH EDOUARD AT [facility]. HE STATED HE DID NOT RECEIVE THE REFERRAL THIS MANAGER GRANT FAXED ALL CLINICALS TO [facility] ATT: EDOUARD T:[phone] F: [phone]
[2020-03-09 12:00] VITALS: BP 98/39
[2020-03-09] MEDS: cefTRIAXone 1 GM in D5W 55 ML IVPB SCH (13:21)
--- NOTE | 2020-03-09 13:25 | General Progress Note ---
Progress Note Progress Note REHAB FOLLOW UP PROGRESS NOTE: SUBJECTIVE: AWAKE RIGHT SIDED WEAKNESS HD TODAY DENIES PAIN DYSARTHRIC CHART AND MEDS REVIEWED. PER PT >> Sit to Stand * Minimal Assistance Bed to Chair/Wheelchair * Minimal Assistance Transfer assistive devices * Front wheel walker Distance * 5 ft Assistance * Contact Guard Assistance * Unable (See Comment) Assistive Device * Front Wheel Walker Gait Comment * .Pt tolerated gait trainign poorly due to c/o fatigue and dizziness. PER OT >> Grooming Ability * Needs Assistance Toileting Ability * Fully Dependent REVIEW OF SYSTEMS: Eyes, denies diplopia. ENT, questionable dysphagia. CARDIOVASCULAR: No chest pain. PULMONARY: Short of breath with activity. GASTROINTESTINAL: No abdominal pain. GENITOURINARY: No dysuria. MUSCULOSKELETAL: Denies pain at this time. INTEGUMENTARY: No cancerous lesion. NEUROLOGIC: The patient with evidence of cerebrovascular accident. PHYSICAL EXAMINATION: VITAL SIGNS: PER CHART, NOTED. HEENT: No facial droop. NECK: Supple HEART: Regular. LUNGS: Diminished breath sounds of bilateral lung pike. ABDOMEN: Soft, nontender, nondistended. Positive bowel sounds. EXTREMITIES: No edema. No clubbing or cyanosis. No calf tenderness. NEUROLOGIC: The patient is alert and awake with some memory difficulty on word expression, word finding difficulty, and mild dysarthria noted. Movement of left upper limb about 3 to 4/5. Left lower limb, 3 to 4/5. Right upper limb is 2 to 3-/5. Right lower limb 3- to 3/5. Sensation is difficult to assess. LABORATORY DATA: PER CHART, NOTED. ASSESSMENT: A 75-year-old male with: 1. Clinical evidence of acute cerebrovascular accident. 2. Transient ischemic attack versus acute CVA versus re-expression of old CVA. 3. Right hemiplegia. 4. Dysarthria. 5. Aphasia. 6. Probable dysphagia. 7. Acute systolic congestive heart failure with cardiomyopathy, ejection fraction of 45%. 8. Gait abnormality. 9. Debility and functional decline. 10. Hypertension. 11. Coronary artery disease. 12. Elevated troponin with troponin leak versus acute non-ST elevation myocardial infarction. 13. End-stage renal disease, on hemodialysis. 14. Anemia. 15. Thrombocytopenia. 16. Malnutrition. 17. History of gouty arthritis. 18. History of neuropathic pain. RECOMMENDATION: 1. Neurology consultation is pending >> per PMD. Workup for the patient's condition from neurological standpoint to be done by a neurologist as soon as possible. 2. Continue medical management per Medicine. 3. The patient requires fall precaution, pressure ulcer precaution, cardiac precaution, aspiration precaution. 4. Nutritional support. 5. 24 hours nursing care. 6. Physical therapy for range of motion, transfer training, endurance, balance and gait training, fall prevention with appropriate assistive device. 7. Occupational therapy for activities of daily living, equipment function, transfer training upper extremity range of motion and strengthening exercise. 8. Speech therapy for retraining on the status of his cognition, memory, speech, language, swallow retraining and aspiration precaution. 9. Nursing for his bowel and bladder, medication regimen, skin care prevention of pressure ulcer, patient and family education. 10. The patient requires acute inpatient rehabilitation placement when the patient is medically stable and cleared and workup is completed. 11. Continue medical management per Medicine. D/W REHAB ADMISSION COORDINATOR. NEEDS COVID 19 CLEARANCE AND NEUROLOGY CLEARANCE FOR ARU. Lyndon Cheng MD Mar 09, 2020 13:25
--- NOTE | 2020-03-09 13:58 | NUR ---
DISCHARGE PLANNING PATIENT HAS BEEN ACCEPTED TO [facility]. THEY ARE REQUESTING A MORE CURRENT COVID SWAB, WHICH HAS BEEN ORDERED ONCE COVID RESULTS HAVE BEEN RECEIVED BY [facility]U THEY WILL PROVIDE THE BED NUMBER
--- NOTE | 2020-03-09 14:25 | NUR ---
NURSE NOTES: Rapid covid swab done, sent to lab. Addendum: 03/09/20 at 1445 by Josie Marcus RN NURSE NOTES: Covid swab negative.
--- NOTE | 2020-03-09 14:58 | NUR ---
NURSE NOTES: HD done earlier today as ordered, 2L out.
--- NOTE | 2020-03-09 15:00 | NUR ---
DISCHARGE PLANNING PATIENT HAS BEEN ACCEPTED TO [facility] ROOM 408 T: [phone] FOR REPORT [facility] HAS BEEN PLACED ON "WILL CALL" WAITING FOR OFFICIAL DISCHARGE ORDER
[2020-03-09] MEDS ORDERED: ASPIRIN EC81 MG ORAL (15:17)
[2020-03-09] MEDS ORDERED: ASPIRIN-LOW81 MG ORAL (15:18)
[2020-03-09] MEDS ORDERED: DOCUSATE SODIU250 MG ORAL (15:19)
[2020-03-09] MEDS ORDERED: COREG6.25 MG ORAL (15:19)
[2020-03-09] MEDS ORDERED: GABAPENTIN100 MG ORAL (15:21)
[2020-03-09] MEDS ORDERED: LOSARTAN POTASS50 MG ORAL (15:21)
[2020-03-09] MEDS ORDERED: RENVELA0.8 GM ORAL (15:21)
[2020-03-09] MEDS ORDERED: TRAMADOL HCL50 MG ORAL (15:22)
[2020-03-09 16:00] VITALS: BP 101/47
--- NOTE | 2020-03-09 16:08 | NUR ---
NURSE NOTES: MRSA swab done, sent to lab.
--- NOTE | 2020-03-09 17:10 | NUR ---
NURSE NOTES: Patient for transfer to [facility], report given to Elina Richmond RN. IV line will remain intact as requested by Elina MONK. No new skin issues noted. Belongings accounted for. Awaiting ambulance to arrive around 530pm.
--- NOTE | 2020-03-09 17:14 | NUR ---
SWALLOW STATUS: BEDSIDE SWALLOW EVALUATION RECEIVED FROM DR. CROWLEY. CHART REVIEWED, RN INTERVIEWED, EVAL COMPLETED. DYSPHAGIA RISK FACTORS FOR THIS 75 YEAR OLD MALE: HX OF SHORTNESS OF BREATH, DECREASED MENTATION PLOF: ON REGULAR TEXTURE DIET PRIOR TO ADMISSION INITIAL IMPRESSIONS: EFFICACY OF OROPHARYNGEAL PHASE OF SWALLOW PRESENTS INTACT. PATIENT ADMITTED WITH DX OF SHORTNESS OF BREATH. HE WAS ABLE TO FOLLOW SIMPLE COMMANDS FOR AN ORAL MOTOR EXAM. DENTITION IS WFL/WITH FEW MISSING TEETH. LINGUAL/LABIAL/MANDIBULAR MUSCULATURE PRESENTS INTACT RELATIVE TO STRENGTH/COORDINATION/ROM. HE WAS PRESENTED WITH SOFT SOLIDS/BITE-SIZE CRACKER PIECES AND THIN LIQUIDS VIA STRAW. ORAL PHASE OF THE SWALLOW WAS WFL WITH NO ANTERIOR SPILLAGE OR RESIDUE NOTED ON LINGUAL SURFACE POST SWALLOW. BOLUS FORMATION AND MANIPULATION WAS WFL. PHARYNGEAL PHASE WAS PALPATED. HYOLARYNGEAL EXCURSION APPEARED TO BE TIMELY AND ADEQUATE FOR AIRWAY PROTECTION. NO CHANGES OBSERVED IN VOCAL QUALITY OR RESPIRATION RATE DURING P.O. TRIALS. NO COUGH OR THROAT CLEAR RESPONSE NOTED. FURTHER SKILLED SYSTEMS ARCHITECT SERVICES DO NOT APPEAR TO BE NEEDED AT THIS TIME RELATIVE TO SWALLOW EFFICACY. DISCUSSED FINDINGS WITH LACHO YANG. RECOMMENDATIONS: 1. CONTINUE CURRENT DIET WITH SET UP ASSIST THANK YOU FOR THIS REFERRAL.
--- NOTE | 2020-03-09 17:36 | NUR ---
COGNITIVE/SPEECH/LANGUAGE EVALUATION RECEIVED FROM DR. CROWLEY. CHART REVIEWED, RN INTERVIEWED, FORMAL TESTING COMPLETED. PATIENT PRESENTS VERBAL, COOPERATIVE/SOCIAL AND ABLE TO PARTICIPATE IN SOCIAL INTERACTIONS WITH MINIMAL DIFFICULTY. ON THE [facility] MENTAL SCALE (UMS) HE ACHIEVED A RAW SCORE OF 15 WHICH IS CONSISTENT WITH MODERATE COGNITIVE DECLINE/DEMENTIA. ON SPECIFIC TASKS INVOLVING MEMORY, PROBLEM SOLVING AND SAFETY AWARENESS THE PATIENT DEMONSTRATED SIGNIFICANT DEFICITS WHICH COULD IMPAIR HIS HEALTH AND WELL BEING IF LIVING IN AN UNSTRUCTURED/UNASSISTED SETTING. VOICING, INTELLIGIBILITY, AND LANGUAGE PRESENT ESSENTIALLY INTACT. RECOMMENDATIONS: 1. PATIENTS GENERALIZED WEAKNESS AND COGNITIVE IMPAIRMENT SUGGEST THE NEED FOR ACUTE/SUB-ACUTE REHAB WITH POST DISCHARGE SUPPORT IN AN ASSISTED LIVING SETTING 2. ST TO PROVIDE COGNITIVE LINGUISTIC TASKS 3. PATIENT TO CONTINUE CURRENT DIET WITH SET UP ASSIST FROM STAFF DUE TO PATIENTS COGNITIVE DEFICITS THANK YOU FOR THIS REFERRAL.
--- NOTE | 2020-03-09 18:58 | NUR ---
NURSE HAND-OFF REPORT: Important Events on Shift:for transfer to [facility]. HD today, 2L out. Patient Status: alert Diet: renal Pending Orders: Pending Results/Labs: Pending MD notification: Latest Vital Signs: Temperature 98.7 , Pulse 79 , B/P 101 /47 , Respiratory Rate 18 , O2 SAT 95 , Room Air, O2 Flow Rate 2.0 . Vital Sign Comment: EKG Rhythm: SR w/1st Degree AVB Rhythm change?: N MD Notified?: Loy Vicente MD Response: No New Orders Received Latest Colbert Fall Score: 60 Fall Risk: High Risk Safety Measures: Call light Within Reach, Bed Alarm Zone 1, Side Rails Side Rails x2, Bed position Low and Locked. Fall Precautions: Yellow Socks Yellow Gown Door Sign Patient Fall Education Report given to . Addendum: 03/09/20 at 1918 by Josie Marcus RN HAND-OFF: Report given to fanny MONK. Also gave report to ambulance personnel, currently being discharged.
--- NOTE | 2020-03-09 23:58 | Cardiology Progress Note ---
Assessment/Plan Assessment/Plan 1. Acute on chronic HFrEF, there is a drop of LVEF from 45% to 30%. Continue guideline directed medical therapy. 2. Slight elevation of troponin I level could be troponin leak associated with end-stage renal disease versus type 2 [id number] myocardial infarction given history of coronary artery disease. 3. History of CAD, s/p failed PCI. 4. Paroxysmal junctional tachycardia. 5. Moderate pulmonary hypertension, could be secondary to end-stage renal disease or left diastolic heart failure. Subjective Subjective Sinus rhythm at rate of 74. Objective Last 24 Hour Vital Signs Date Time Temp Pulse Resp B/P (MAP) Pulse Ox O2 Delivery O2 Flow Rate FiO2 03/09/20 16:00 98.7 74 18 101/47 (65) 95 03/09/20 16:00 79 03/09/20 12:00 98.1 71 19 98/39 (58) 94 03/09/20 12:00 76 03/09/20 09:30 Room Air 2.0 03/09/20 09:00 Room Air 03/09/20 08:00 82 03/09/20 08:00 96.3 72 18 91/50 (64) 93 03/09/20 04:00 71 03/09/20 04:00 97.9 76 20 109/55 (73) 94 03/09/20 00:00 71 03/09/20 00:00 98.1 75 20 105/60 (75) 96 Intake and Output0 03/08/20 03/09/20 19:00 07:00 Intake Total 195 ml 200 ml Balance 195 ml 200 ml Intake Oral 140 ml 200 ml IV Total 55 ml # Voids 3 2D Echo: LVEF 30%, Global HK, RVSP 58, AZUL, Grade II LVDD (pseudo-normal physio) Microbiology Date/Time Source Procedure Growth Status 03/09/20 14:20 Nasopharynx SARS-CoV-2 RdRp Gene Assay - Final Complete Objective HEENT: Atraumatic, normocephalic. Anicteric. Pupils are equal, round, and reactive to light and accommodation. Extraocular muscles intact. NECK: JVP less than 5 cm. No carotid bruit. Carotid upstroke is 2+ bilaterally. CARDIOVASCULAR: Normal S1, S2. Regular rate and rhythm. No murmurs, gallops, or rubs. PMI is at fourth intercostal space and midclavicular line. LUNGS: Diminished breath sounds throughout, somewhat diminished mostly in the bases of both lungs with increased dullness. ABDOMEN: Soft, nontender, and nondistended. No hepatosplenomegaly. Positive bowel sounds. EXTREMITIES: No evidence of edema, clubbing, or cyanosis. Chris Vicente MD Mar 09, 2020 23:58
--- NOTE | 2020-03-13 09:09 | Discharge Summary ---
Discharge Summary Discharge Summary _ DATE OF ADMISSION: 03/04/2020 DATE OF DISCHARGE: 03/09/2020 DISCHARGED BY: Dr. Benavidez REASON FOR ADMISSION: 75 years old male with past medical history of end-stage renal disease, on hemodialysis, coronary artery disease, status post failed PCI, CHF, presented with sudden onset of shortness of breath. 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 He denied fever or chills. No chest pain. Patient reported recent negative Covid test on February 25. Patient had dialysis 2 days ago. Upon evaluation patient was tachycardic with heart rate of 120 , blood pressure was 152/100 , pulse oximetry was 91% on room air. Laboratory work-up revealed no leukocytosis, hemoglobin 12.4 ,hematocrit 28.4, platelet count 124. Potassium 6.4. BUN 72, creatinine 11.7. Glucose 82. Troponin elevated 0.157 , pro BNP 61855. EKG revealed accelerated junctional rhythm, no ST segment elevation. Rapid COVID-19 was negative. Chest x-ray demonstrated mild CHF. Patient placed on supplemental oxygen with improvement in oxygenation. Hyperkalemia was treated with calcium gluconate, dextrose and insulin Patient received nitroglycerin sublingually . Patient admitted to telemetry floor for further management. CONSULTANTS: canoe inspector Dr. Vicente pulmonary Dr. Fields sumac tanner Dr. Moon physical medicine and rehabilitation therapy technician Dr. Sosa HOSPITAL COURSE: Patient admitted to telemetry floor . Construction Engineer closely followed. Dialysis provided as per sumac tanner recommendation with close monitoring of volumes and cardiorenal parameters. Electrolytes corrected as needed. Echocardiogram revealed global left ventricular hypokinesis with abnormal septal motion. Left ventricular ejection fraction estimated to be 30%. Moderate to severe mitral regurgitation. Moderately elevated left atrial pressure grade 2. Moderate to severe tricuspid regurgitation. Right ventricular systolic pressure of 58 consistent with a moderate pulmonary hypertension. It appeared that ejection fraction dropped from 45 to 30%. Guideline directed medical therapy provided as per canoe inspector recommendation. Slightly elevation in troponin level probably troponin leak associated with end-stage renal disease . Patient also had a history of coronary artery disease , status post failed PCI. Patient was on beta-guillermo , ARB, statin and antiplatelet therapy with Aspirin. Volumes were closely monitored. Supplemental oxygen provided and titrated to keep pulse oximetry above 92%. Pulmonary toilet was on board as needed. Hemodialysis continued with afterload reduction. Hemoglobin and hematocrit were closely monitored with goal to keep hemoglobin above 7. Patient was continued on Epogen. Prior to discharge hemoglobin 10.3 , hematocrit 32.3. Electrolytes corrected as needed; prior to discharge electrolytes stable . Patient demonstrated clinical evidence of acute cerebrovascular accident. Physical medicine and rehabilitation therapy technician evaluated patient CT of the head revealed no acute intracranial pathology, however multiple old infarcts noted. Patient was working with a physical therapist. Diet texture provided as per speech therapist recommendation. Aspiration precaution maintained. Physical medicine and rehabilitation therapy technician recommended further rehabilitation services. Patient subsequently was transferred to [facility] to acute rehabilitation unit for further management. FINAL DIAGNOSES: Acute on chronic congestive heart failure with reduced ejection fraction End-stage renal disease, on hemodialysis Mild elevation of troponin , likely troponin leak CVA/ TIA with right hemiplegia, dysarthria ,and aphasia Dysphagia Malnutrition Coronary artery disease, status post failed PCI Paroxysmal junctional tachycardia Moderate pulmonary hypertension Anemia of chronic kidney disease Electrolyte abnormalities : hypocalcemia hyponatremia DISCHARGE MEDICATIONS: See Medication Reconciliation list. DISCHARGE INSTRUCTIONS: Patient was transferred to acute rehabilitation unit at [facility] for further rehabilitation. I have been assigned to dictate discharge summary for this account. I was not involved in the patient's management. Elsa Nelson NP Mar 13, 2020 09:09
== END 2020-03-09 19:28 | DRG 291 ==
LOC: EDBD 07:39 → EMR 07:56 → EDBEDREQ 09:18 → 2E 09:24
PROC: 5A1D70Z Performance of Urinary Filtration, Intermittent, Less than 6 Hours Per Day (ICD-10-PCS; principal; 2020-03-04)
DX: I13.2 Hypertensive heart and chronic kidney disease with heart failure and with stage 5 chronic kidney disease, or end stage renal disease (principal); N18.6 End stage renal disease; I50.33 Acute on chronic diastolic (congestive) heart failure; E87.1 Hypo-osmolality and hyponatremia; I69.351 Hemiplegia and hemiparesis following cerebral infarction affecting right dominant side; E46 Unspecified protein-calorie malnutrition; I47.1 Supraventricular tachycardia; Z99.2 Dependence on renal dialysis; E87.5 Hyperkalemia; I95.9 Hypotension, unspecified; D63.1 Anemia in chronic kidney disease; I69.320 Aphasia following cerebral infarction; I69.322 Dysarthria following cerebral infarction; I25.10 Atherosclerotic heart disease of native coronary artery without angina pectoris; Z88.0 Allergy status to penicillin; Z87.891 Personal history of nicotine dependence; I27.20 Pulmonary hypertension, unspecified; I25.2 Old myocardial infarction; I42.9 Cardiomyopathy, unspecified; Z79.82 Long term (current) use of aspirin; E83.51 Hypocalcemia; R13.10 Dysphagia, unspecified
CPT/HCPCS: 36415; 70450; 71045; 80048; 80053; 82248; 82550; 82553; 82803; 83735; 83880; 84100; 84484; 85007; 85025; 85610; 85730; 86706; 87081; 93005; 93306; 96374; 96375; 99291; J7620; U0002